=== PATIENT | male | born 1970 | race Caucasian/White ===

== ENCOUNTER 2021-12-09 10:23 | Outpatient (REF) | payer MEDICARE, MEDICAID, SELFPAY ==
--- NOTE | ~2021-12-09 | XR_ITS ---
EXAMINATION: XR CHEST CLINICAL INFORMATION: Cough, unspecified. COMPARISON: Chest radiographs 07/22/2011. TECHNIQUE: 2 views of the chest were obtained. FINDINGS: No airspace consolidation or ground-glass opacity or effusion. Heart size normal. Vascularity normal. The hilar and mediastinal contours and visualized bony structures are unremarkable. XR/XR chest 2V IMPRESSION: Unremarkable examination.
[2021-12-09 10:57] LABS: MANUAL DIFF FLAG NO
[2021-12-09 11:10] LABS: Hematocrit 38.9 % (42.0-52.0); Hemoglobin 13.8 g/dl (14.0-18.0); Imm Gran Abs Auto 0.03 X10*3/uL (0.00-0.03); Imm Gran Pct Auto 0.6 % (0.0-0.4); Lymphocytes Absolute Auto 1.6 X10*3/uL (1.2-4.9); Lymphocytes Percent Auto 32.9 % (20-40); Mean Corpuscular HGB Conc 35.5 g/dl (31.0-36.0); Mean Corpuscular Hemoglobin 29.8 pg (27.0-33.0); Mean Platelet Volume 8.8 fL (9.4-12.4); Monocytes Absolute Auto 0.4 X10*3/uL (0.1-1.2); Monocytes Percent Auto 8.7 % (2-11); Neutrophils Absolute Auto 2.7 x10*3/uL (2.0-8.3); Neutrophils Percent Auto 57.8 % (45-73); Platelet Count 163 X10*3/uL (160-400); Red Blood Count 4.63 X10*6/uL (4.60-5.80); Red Cell Distribution Width 12.1 % (11.0-16.0); White Blood Count 4.7 X10*3/uL (4.8-10.8)
[2021-12-09 14:17] LABS: Thyroid Stimulating Hormone 0.98 uIU/mL (0.32-4.0)
[2021-12-09 14:23] LABS: Alanine Aminotransferase 59 U/L (0-40); Albumin Level 4.8 g/dL (3.5-5.0); Alkaline Phosphatase 75 U/L (39-117); Anion Gap 15 (12-20); Aspartate Amino Transferase 24 U/L (5-37); Bilirubin Total 0.8 mg/dL (0.0-1.0); Blood Urea Nitrogen 18 mg/dL (9-16); Calcium 9.2 mg/dL (8.4-10.2); Carbon Dioxide 24 mmol/L (22-29); Chloride 108 mmol/L (96-108); Cholesterol 245 mg/dL; Estimated Glomerular Filt Rate > 60; Glucose Fasting 121 mg/dL (60-99); HDL Cholesterol 42 mg/dL; LDL Cholesterol Calculated 186 mg/dl; Potassium 4.2 mmol/L (3.3-5.1); Sodium 143 mmol/L (135-145); Total Protein 7.5 g/dL (6.5-8.0); Triglycerides 86 mg/dL
== END 2021-12-09 10:24 | disposition home or self-care (01) ==
LOC: HO.XRAY 10:23
PROVIDERS: PCP Internal Medicine; Visit Provider Internal Medicine
DX: Z13.0 Encounter for screening for diseases of the blood and blood-forming organs and certain disorders involving the immune mechanism (principal); R05.9 Cough, unspecified; E03.9 Hypothyroidism, unspecified; E78.5 Hyperlipidemia, unspecified; I10 Essential (primary) hypertension
CPT/HCPCS: 36415; 71046; 80053; 80061; 84443; 85025

== ENCOUNTER 2022-03-12 09:35 | Emergency (ER) | payer MEDICARE, MEDICAID, SELFPAY ==
--- NOTE | ~2022-03-12 | CT_ITS ---
EXAMINATION: NONCONTRAST HEAD CT NONCONTRAST MAXILLOFACIAL CT INDICATION INFORMATION: Trauma COMPARISON: None. TECHNIQUE: Separate noncontrast CT examinations of the head and maxillofacial bones were performed. Coronal and sagittal images were created for each examination at the technologist workstation. This CT examination was performed using dose optimization techniques as appropriate, variously including the following: *Automated exposure control *Adjustment of mA and/or kV according to patient size (this includes techniques or standardized protocols for targeted exams where dose is matched to indication/reason for exam; i.e. extremities or head) *Use of iterative reconstruction technique DLP: 1473 mGy-cm FINDINGS: Head: There is no evidence of acute intracranial hemorrhage or territorial infarction. No abnormal mass effect or midline shift is seen. Ceron to white matter differentiation is well preserved. No extra-axial fluid collections are identified. No hydrocephalus. No significant volume loss. There is no abnormal attenuation within the brain parenchyma. Focal solid tissue swelling and subgaleal hematoma along the frontal calvarium anteriorly.. No calvarial fracture. The mastoid air cells are well aerated. Maxillofacial: No acute maxillofacial fractures are seen. The frontal, maxillary, ethmoid, and sphenoid sinuses are well aerated, apart from minimal mucosal thickening along the alveolar recess of the right maxillary atelectasis. The uncinate process is normal bilaterally. The infundibula and middle meati are patent. The nasal septum is midline. Prominent leftward projecting osseous nasal septal spur. There is mild anterior translation of the bilateral mandibular heads with respect to the mandibular fossae, slightly greater than expected for the degree of opening of the mouth. The orbits demonstrate a normal appearance bilaterally. The globes are intact, and there are no suspicious findings to suggest retrobulbar hemorrhage. CT/CT facial bones wo IV con IMPRESSION: * No acute intracranial pathology. * No acute maxillofacial bone fracture. * Mild anterior translation of the mandibular condyles with respect to the mandibular fossae. This may be physiologic, however is greater than expected for the position of the jaw. Correlate with any TMJ symptomatology.
[2022-03-12 09:38] VITALS: BP 148/85; PULSE 102; RESP 20; TEMP 36.8; O2SAT 98; BMI 31.4
--- NOTE | 2022-03-12 10:19 | ED_ITS ---
HPI - General Adult General Chief complaint: Skin/Abscess/Foreign Body Stated complaint: forehead swelling, no injury Time Seen by Provider: 03/12/22 10:19 Source: patient Mode of arrival: ambulatory Limitations: no limitations History of Present Illness HPI narrative: Patient is a 51 year old assigned male at with a history of HLD and bipolar presenting to the emergency department today with forehead swelling. Patient states that he has always had a cyst on his hairline and 2 days ago, he hit his head where that cyst is. Patient states that over the last 2 days, he has swelling in his forehead. Patient states that he was seen at an urgent care where they gave him antibiotics. Patient denies any dizziness, lightheadedness, abdominal pain, nausea, vomiting, fever, chills, blurry vision, double vision, loss of vision, chest pain, difficulty breathing, shortness of breath, back pain, night sweats, pain with urination, increased urinary frequency, increased urinary urgency, blood in his urine or stool, syncope or a near syncopal episode, recent trauma or falls, bowel incontinence, bladder incontinence, bowel retention, bladder retention, or any other complaints at this time. Onset (ago): day(s) (2) Location: head and face Radiation: non-radiation Severity: mild Severity scale (1-10): 3 Pain Consistency: constant Relieving factors: none Exacerbating factors: none Associated symptoms: denies other symptoms Treatments prior to arrival: none Related Data Home Medications Medication Instructions Recorded Confirmed clonazepam 0.5 mg tablet 0 mg PO 07/10/20 12/16/21 clozapine 100 mg tablet 0 mg PO 07/10/20 12/16/21 Previous Rx's Medication Instructions Recorded epinephrine 0.15 mg/0.3 mL 0.15 mg (0.3 mL) IM Q30M PRN 11/11/20 injection,auto-injector (EpiPen Jr anaphylaxis #2 ea 2-Pal) epinephrine 0.3 mg/0.3 mL 0.3 mg (0.3 mL) IM Q4H PRN 11/13/21 injection, auto-injector (EpiPen anaphylaxis #2 ea 2-Pal) selenium sulfide 2.5 % lotion 1 appl topical DAILY 7 days #120 mL 11/13/21 nirmatrelvir 300 mg (150 mg See Rx Instructions PO .COMPLEX 01/27/22 x2)-ritonavir 100 mg tablet,dose #30 tabs pack(EUA) (Paxlovid) sulfamethoxazole 800 1 tab PO BID 5 days #10 tabs 03/11/22 mg-trimethoprim 160 mg tablet (Bactrim DS) Allergies Allergy/AdvReac Type Severity Reaction Status Date / Time bees Allergy Intermediate Hives Uncoded 11/13/21 10:53 Review of Systems Constitutional: Constitutional: Reports no additional constitutional complaints, Denies chills, Denies fever(s) and Denies night sweats Eyes: Eyes: Reports no additional eye complaints, Denies blurry vision, Denies change in vision, Denies diplopia, Denies eye discharge, Denies loss of vision and Denies eye pain ENT: Denies dizziness Cardiovascular: Cardiovascular: Reports no additional cardiovascular complaints, Denies chest pain, Denies lightheadedness, Denies Loss of Consciousness and Denies dyspnea Respiratory: Respiratory: Reports no additional respiratory complaints and Denies dyspnea Gastrointestinal: Gastrointestinal: Reports no additional gastrointestinal complaints, Denies abdominal pain, Denies melena, Denies hematochezia, Denies change in bowel habits and Denies change in stool character Genitourinary: Genitourinary: Reports no additional male genitourinary complaints, Denies hematuria, Denies oliguria, Denies difficulty urinating, Denies dysuria, Denies urinary frequency, Denies urinary hesitancy, Denies urinary incontinence and Denies urinary urgency Musculoskeletal: Musculoskeletal: Reports no additional musculoskeletal complaints, Denies numbness and Denies tingling Comments: forehead swelling Neurologic: Denies dizziness, Denies loss of vision, Denies numbness and Denies tingling Psychiatric: Psychiatric: Reports no additional psychiatric complaints Endocrine: Endocrine: Reports no additional endocrine complaints Hematologic/Lymphatic: Hematologic/Lymphatic: Reports no additional hematologic/lymphatic complaints Allergic/Immunologic: Allergic/Immunologic: Reports no additional allergic/immunologic complaints [facility] Past Medical History Attestation statement: The following information was validated with the patient. Source: old records reviewed Medical History Bee sting allergy Bipolar disorder Surgical History History of appendectomy Family History Family History Mother Stroke Father No problems noted. Social History Social History Housing: House Alcohol intake: never Patient Tobacco Use Status: Current someday Tobacco user Tobacco use type: Cigar Smoked in Last 30 Days: No e-Cigarette/Vaping Use: Never Used Second Hand Smoke Exposure: No Advance Directives: No Advance Directives Information Provided: Yes service: No Current occupational status: unemployed Cognitive needs: No Hearing needs: No Vision needs: No Physical Exam ED Vital Signs: Vital Signs - 24 hr 03/12/22 09:38 03/12/22 11:38 Temperature 98.2 F Pulse Rate 102 H 89 Respiratory Rate 20 16 Blood Pressure 148/85 H 139/85 Pulse Oximetry 98 97 Oxygen Delivery Method Room Air Room Air BMI result Body Mass Index 31.4 Const General: cooperative, no acute distress, alert and awake Nutritional Appearance: well nourished Orientation/consciousness: patient oriented x3 Limitations: no limitations HENMT Other: minimal swelling to the forehead, no warmth, no erythema Ears: hearing grossly normal bilaterally and external ears normal General nose exam: Normal external nose present, no nasal discharge noted and no epistaxis Face and sinus: Yes normal facial exam, No abrasion and No laceration Mouth: Normal oral and palatal mucosa present, no drooling and no muffled voice Eyes General: appearance normal, both eyes and all related structures Periorbital: periorbital findings normal Eyelids: Yes eyelids normal Conjunctivae: conjunctivae normal Pupils: Equal, round and reactive pupils present EOM: EOMs intact bilaterally Neck Neck: Yes normal visual inspection, Yes full ROM and Yes no lymphadenopathy Chest Chest palpation & inspection: normal inspection of the chest Resp Effort & Inspection: normal respiratory effort and able to speak in complete sentences GI Inspection: Yes normal to inspection Neuro General: patient oriented x3 and moves all extremities Cranial nerves: Yes Equal, round and reactive pupils present Cognition (Neuro): normal cognition Motor exam (neuro): 5/5 motor strength present throughout Sensory Exam: Normal double simultaneous stimulation for sensation Coordination: [id number] test normal Extrem General: Yes normal to inspection, Yes full ROM and Yes capillary refill normal Psych Appearance: grossly normal Mental Status: mental status grossly normal Affect: normal affect Attitude: cooperative Thought process: Normal thought process present Thought content: Normal thought content present Insight: Good insight present (Psych) Medical Decision Making MDM Narrative Medical decision making narrative: Patient is a 51 year old assigned male at with a history of HLD and bipolar disorder presenting to the emergency department today with forehead swelling. Patient's physical exam showed minimal swelling to the forehead with no erythema or warmth. Patient's head and facial CT showed no acute process. I explained my physical exam findings as well as all test results to the patient. I answered all questions asked by the patient. I stressed the importance of the patient taking his medication as prescribed. I stressed the importance of the patient following up with his primary care provider and a general surgeon. I stressed the importance of the patient returning to the emergency department immediately if his symptoms were to worsen or if he were to develop any dizziness, shortness of breath, difficulty breathing, chest pain, blurry vision, loss of vision, nausea, vomiting, abdominal pain, fever, chills, back pain, or any other complaints. Patient verbalized agreement and understanding with this treatment plan and discharge. Medical Records Medical records reviewed: Yes I reviewed the patient's medical records. Imaging Data CT scan head and facial bones: Attestation: I personally reviewed and interpreted this imaging study as follows: My impression: No acute process. Radiologist's impression: EXAMINATION: NONCONTRAST HEAD CT NONCONTRAST MAXILLOFACIAL CT INDICATION INFORMATION: Trauma COMPARISON: None. TECHNIQUE: Separate noncontrast CT examinations of the head and maxillofacial bones were performed. Coronal and sagittal images were created for each examination at the technologist workstation. This CT examination was performed using dose optimization techniques as appropriate, variously including the following: *Automated exposure control *Adjustment of mA and/or kV according to patient size (this includes techniques or standardized protocols for targeted exams where dose is matched to indication/reason for exam; i.e. extremities or head) *Use of iterative reconstruction technique DLP: 1473 mGy-cm FINDINGS: Head: There is no evidence of acute intracranial hemorrhage or territorial infarction. No abnormal mass effect or midline shift is seen. Ceron to white matter differentiation is well preserved. No extra-axial fluid collections are identified. No hydrocephalus. No significant volume loss. There is no abnormal attenuation within the brain parenchyma. Focal solid tissue swelling and subgaleal hematoma along the frontal calvarium anteriorly.. No calvarial fracture. The mastoid air cells are well aerated. Maxillofacial: No acute maxillofacial fractures are seen. The frontal, maxillary, ethmoid, and sphenoid sinuses are well aerated, apart from minimal mucosal thickening along the alveolar recess of the right maxillary atelectasis. The uncinate process is normal bilaterally. The infundibula and middle meati are patent. The nasal septum is midline. Prominent leftward projecting osseous nasal septal spur. There is mild anterior translation of the bilateral mandibular heads with respect to the mandibular fossae, slightly greater than expected for the degree of opening of the mouth. The orbits demonstrate a normal appearance bilaterally. The globes are intact, and there are no suspicious findings to suggest retrobulbar hemorrhage. CT/CT head/brain wo IV con IMPRESSION: *? No acute intracranial pathology. *? No acute maxillofacial bone fracture. *? Mild anterior translation of the mandibular condyles with respect to the mandibular fossae. This may be physiologic, however is greater than expected for the position of the jaw. Correlate with any TMJ symptomatology. Dictated By: Charanjit Hurd MD Signed By: Electronically signed by Charanjit Hurd MD 03/12/22 1234 Discharge Plan Discharge Clinical Impression: Cyst Patient Disposition: Home, Self-Care Additional Instructions: Follow up with your primary care provider and a general surgeon. Return to the emergency department immediately if your symptoms worsen or if you develop any dizziness, shortness of breath, difficulty breathing, chest pain, blurry vision, loss of vision, nausea, vomiting, abdominal pain, fever, chills, back pain, or any other complaints. Prescriptions: No Action Paxlovid (EUA) 300 mg (150 mg x 2)-100 mg tablets,dose pack See Rx Instructions PO .COMPLEX Qty: 30 0RF Rx Instructions: take TWO 150 mg tablets of nirmatrelvir with ONE 100 mg tablet of ritonavir twice daily for 5 days PO sulfamethoxazole-trimethoprim [Bactrim DS] 800-160 mg tablet 1 tab PO BID 5 Days Qty: 10 0RF clozapine 100 mg tablet 0 mg PO clonazepam 0.5 mg tablet 0 mg PO epinephrine [EpiPen Jr 2-Pal] 0.15 mg/0.3 mL auto-injector 0.15 mg IM Q30M PRN (Reason: anaphylaxis) Qty: 2 4RF Rx Instructions: do not exceed 12 doses per 24 hrs selenium sulfide 2.5 % lotion 1 appl topical DAILY 7 Days Qty: 120 8RF epinephrine [EpiPen 2-Pal] 0.3 mg/0.3 mL auto-injector 0.3 mg IM Q4H PRN (Reason: anaphylaxis) Qty: 2 0RF Referrals: [facility] [place] Surgeons [Provider Group] (Call to establish and follow up with a general surgeon. ) Sy Swanson MD [Primary Care Provider] - Stand Alone Forms: Work/School Release Interventions: ED Discharge Assessment Last Done: 03/12/22 13:25 Discharge Date/Time: 03/12/22 13:26 Print Language: Bengali
[2022-03-12 11:38] VITALS: BP 139/85; PULSE 89; RESP 16; O2SAT 97
--- NOTE | 2022-03-12 13:20 | PC.NURSE ---
patient a/ox4 . went over discharge instructions as ordered by provider . patient to follow up with primary care . patient to return if symptoms worsen . no questions at this time .
== END 2022-03-12 13:26 | disposition home or self-care (01) ==
PROVIDERS: Emergency Provider Emergency Medicine; PCP Internal Medicine
DX: L72.9 Follicular cyst of the skin and subcutaneous tissue, unspecified (principal); R51.9 Headache, unspecified; R22.0 Localized swelling, mass and lump, head; Z79.899 Other long term (current) drug therapy; F17.200 Nicotine dependence, unspecified, uncomplicated; Z71.6 Tobacco abuse counseling
CPT/HCPCS: 70450; 70486; 99284

== ENCOUNTER 2022-03-14 08:26 | Emergency (ER) | payer MEDICARE, MEDICAID, SELFPAY ==
[2022-03-14 09:04] VITALS: BP 129/85; PULSE 105; RESP 18; TEMP 36.9; O2SAT 96; BMI 42.5
[2022-03-14] MEDS: Lidocaine HCl 1 % MPF 5 ML VIAL SUBCUT (11:27)
[2022-03-14] MEDS: Famotidine 20 MG TABLET PO (11:41)
[2022-03-14] MEDS: hydrOXYzine HCL 50 MG TABLET PO (11:41)
[2022-03-14] MEDS: predniSONE 20 MG TABLET 60 MG PO (11:41)
--- NOTE | 2022-03-14 12:23 | ED.GENADULT ---
HPI - General Adult General Chief complaint: General Medical Stated complaint: Eye swelling/possibly from antibiotic? Time Seen by Provider: 03/14/22 10:29 Source: patient and family Mode of arrival: ambulatory Limitations: no limitations History of Present Illness HPI narrative: 51-year-old male presenting to the ER with complaints of swelling to his bilateral eyelids in worsening redness/swelling to his cyst to his forehead. He reports that he was seen here on 03/12/[address] scan of his brain and was told he had a cyst in that he no longer had to take the Bactrim that he was prescribed by his on-call PCP a few days prior to that for possible cellulitis/abscess. He reports that he was told not to take the Bactrim while he was here in the ER although when he spoke to his sister who is a nurse she told him if he has an infection that he should stay on the antibiotic. Therefore he has been taking the Bactrim as prescribed. He reports that the swelling/redness is getting worse to the cyst that he has on his forehead. Now he has swelling to his bilateral eyelids. He reports in the past he has had allergic reactions to bee stings and cats and he has had eye swelling. He has had to use an EpiPen in the past. He denies any fevers, chills, dizziness, headaches, neck pain/stiffness, sore throat, trouble swallowing or breathing, wheezing, cough, shortness of breath, dyspnea on exertion, orthopnea, chest pain, nausea/vomiting, diarrhea, abdominal pain, any other complaints concerns or injuries at this time. He denies any new substances other than the Bactrim that he is on. MD complaint: Worsening cellulitis/abscess and swelling of eyelids Onset (ago): day(s) (Past few days worse today) Related Data Home Medications Medication Instructions Recorded Confirmed clonazepam 0.5 mg tablet 0 mg PO 07/10/20 12/16/21 clozapine 100 mg tablet 0 mg PO 07/10/20 12/16/21 Previous Rx's Medication Instructions Recorded epinephrine 0.15 mg/0.3 mL 0.15 mg (0.3 mL) IM Q30M PRN 11/11/20 injection,auto-injector (EpiPen Jr anaphylaxis #2 ea 2-Pal) epinephrine 0.3 mg/0.3 mL 0.3 mg (0.3 mL) IM Q4H PRN 11/13/21 injection, auto-injector (EpiPen anaphylaxis #2 ea 2-Pal) selenium sulfide 2.5 % lotion 1 appl topical DAILY 7 days #120 mL 11/13/21 nirmatrelvir 300 mg (150 mg See Rx Instructions PO .COMPLEX 01/27/22 x2)-ritonavir 100 mg tablet,dose #30 tabs pack(EUA) (Paxlovid) sulfamethoxazole 800 1 tab PO BID 5 days #10 tabs 03/11/22 mg-trimethoprim 160 mg tablet (Bactrim DS) cephalexin 500 mg capsule 500 mg PO Q6H 7 days #28 caps 03/14/22 diphenhydramine HCl 25 mg tablet 50 mg PO TID PRN allergic reaction 03/14/22 (Benadryl Allergy) #14 tabs doxycycline monohydrate 100 mg 100 mg PO BID 7 days #14 tabs 03/14/22 tablet famotidine 20 mg tablet (Pepcid) 20 mg PO BID rash #14 tabs 03/14/22 prednisone 20 mg tablet 40 mg PO DAILY rash 5 days #10 tabs 03/14/22 Allergies Allergy/AdvReac Type Severity Reaction Status Date / Time bees Allergy Intermediate Hives Uncoded 11/13/21 10:53 Review of Systems Review of Systems: Constitutional : No Fever, No Chills , no body aches, no recent illness Head/Face:+eyelid swelling no additional facial swelling, No facial redness ENT/Mouth : No oral/throat swelling, No Hoarseness, No Swallowing Difficulty Eyes: No Eye Pain, No Swelling, No Redness Cardiovascular : No Chest Pain, No SOB, No palpitations Respiratory : No Cough, No Sputum, No Wheezing, No Smoke Exposure, No Dyspnea Gastrointestinal : No Nausea, No Vomiting, No Diarrhea, No abdominal Pain Genitourinary : No Dysuria, No Urinary Frequency, No Hematuria Musculoskeletal : No joint pain, No Myalgias, No Joint Swelling Skin : + Skin Lesions/abscess, No rash Neuro : No Weakness, No Numbness, No Headache, No dizziness, No tingling Psych : No Anxiety/Panic, No Depression Heme/Lymph: No Bruising, No Lymphadenopathy Endocrine : No Polyuria, No Polydipsia Denies changes in lotions or detergents. Denies drainage from rash. Denies any recent sick contacts or recent travel. + patient is currently on Bactrim this is a new medication for an abscess. Yes all other systems are reviewed and are negative PMFSH Past Medical History Attestation statement: The following information was validated with the patient. Source: old records reviewed, obtained from family and nursing notes reviewed Medical History Bee sting allergy Bipolar disorder Surgical History History of appendectomy Family History Family History Mother Stroke Father No problems noted. Social History Social History Housing: House Alcohol intake: never Patient Tobacco Use Status: Current someday Tobacco user Tobacco use type: Cigar e-Cigarette/Vaping Use: Never Used Second Hand Smoke Exposure: No Advance Directives: No Advance Directives Information Provided: No service: No Current occupational status: unemployed Cognitive needs: No Hearing needs: No Vision needs: No Physical Exam ED Vital Signs: Vital Signs - 24 hr 03/14/22 09:04 Temperature 98.5 F Pulse Rate 105 H Respiratory Rate 18 Blood Pressure 129/85 Pulse Oximetry 96 Oxygen Delivery Method Room Air BMI result Body Mass Index 42.5 vital signs have been reviewed as normal and appeared to be correct. Blood pressure normal. Heart rate 105. Respiration rate normal. Temperature normal. Oxygen saturation normal. Appearance: Alert. Oriented X3. No acute distress. Head: Normal external exam. Normocephalic. Atraumatic. Eyes: PERRLA. EOMI. Conjunctiva and sclera normal. Bilateral eyelid swelling to both eyes. ENT: Pharynx normal. Uvula midline. Moist mucous membranes. No lesions/ulcerations or masses noted on the tongue. Normal voice. No trismus noted. No drooling noted. No muffled voice noted. Neck: Normal inspection. Neck supple. FROM. No adenopathy. Thyroid Normal. No tracheal deviation noted. No crepitus is noted. No meningeal signs. CVS: Normal heart rate and rhythm. Respiratory: No respiratory distress. Painless inspiration. Back: Full range of motion noted. Skin: Skin warm and dry. Normal skin color. Normal skin turgor. Patient with fluctuant abscess to the right forehead/hairline with surrounding erythema/warmth to touch and tender to palpation. No streaking noted. No additional rashes/lesions/lacerations noted. Extremities: Extremities exhibit normal range of motion and nontender. Neuro: Oriented X 3. No motor deficit. No sensory deficit. Reflexes normal. Normal steady gait. No focal neuro deficits noted. CN's II-XII intact bilaterally? Course Course Course Narrative: IMP/Plan: Allergic rxn. Not anaphylaxis. Not sepsis/ infectious etiology. Patient well appearing in no acute distress, breathing easily without throat symptoms. Speaking full sentences, and handling secretions without difficulty. There is no obvious threat to airway. Lungs are CTA in all osborn. No signs of angioedema, stridor, airway compromise, anaphylaxis or anaphylactic shock. Not c/w SSSS/ TEN/ Eryth multiforme/ Frankel Johnsons. Patient was given prednisone, Atarax and Pepcid and his bilateral eyelid swelling did improve while the patient was here. He is now status post I&D of abscess. Patient tolerated procedure well. No complications. Although while myself and the student from [facility] where trying to express the purulent discharge the abscess bursted in the students face and we are unsure if the patient's blood/purulent discharge went into the students I therefore patient denied any history of hepatitis or HIV although he is agreeable to getting his blood taken for the student after the exposure of the blood/purulent discharge from the abscess. We will discharge the patient with antibiotics with doxycycline Keflex. I explained to the patient that he should no longer take Bactrim. Along with instructions to follow-up with PCP/ general surgeon for possible cystic sac removal. Patient understands agrees with this plan. Procedures Abscess I/D Site: scalp Side (if applicable): right Local Anesthetic: lidocaine 1% Amount of anesthesia used (mL): 3 Technique: incised with blade Amount of fluid expressed (mL): 5 Sent for culture/gram staining?: No Irrigation: No Packing used?: none Complications: other (No complications) Medical Decision Making Medical Records Medical records reviewed: Yes I reviewed the patient's medical records. Lab Data Lab results reviewed: Yes I reviewed the patient's lab results. Discharge Plan Discharge Clinical Impression: Abscess of forehead, Cellulitis of forehead, Allergic reaction, Eyelid swelling Patient Disposition: Home, Self-Care Instructions: Cellulitis (ED), General Allergic Reaction (ED), Abscess Incision and Drainage (DC) Prescriptions: New doxycycline monohydrate 100 mg tablet 100 mg PO BID 7 Days Qty: 14 0RF cephalexin 500 mg capsule 500 mg PO Q6H 7 Days Qty: 28 0RF diphenhydramine HCl [Benadryl Allergy] 25 mg tablet 50 mg PO TID PRN (Reason: allergic reaction) Qty: 14 0RF prednisone 20 mg tablet 40 mg PO DAILY 5 Days Qty: 10 0RF famotidine [Pepcid] 20 mg tablet 20 mg PO BID Qty: 14 0RF No Action Paxlovid (EUA) 300 mg (150 mg x 2)-100 mg tablets,dose pack See Rx Instructions PO .COMPLEX Qty: 30 0RF Rx Instructions: take TWO 150 mg tablets of nirmatrelvir with ONE 100 mg tablet of ritonavir twice daily for 5 days PO sulfamethoxazole-trimethoprim [Bactrim DS] 800-160 mg tablet 1 tab PO BID 5 Days Qty: 10 0RF clozapine 100 mg tablet 0 mg PO clonazepam 0.5 mg tablet 0 mg PO epinephrine [EpiPen Jr 2-Pal] 0.15 mg/0.3 mL auto-injector 0.15 mg IM Q30M PRN (Reason: anaphylaxis) Qty: 2 4RF Rx Instructions: do not exceed 12 doses per 24 hrs selenium sulfide 2.5 % lotion 1 appl topical DAILY 7 Days Qty: 120 8RF epinephrine [EpiPen 2-Pal] 0.3 mg/0.3 mL auto-injector 0.3 mg IM Q4H PRN (Reason: anaphylaxis) Qty: 2 0RF Referrals: Sy Swanson MD [Primary Care Provider] - (your pcp) Rubens Schuler MD [Physician] - (Call to make a follow-up appointment within the next few weeks possible cystic sac removed) Print Language: Tristanian
[2022-03-14 14:04] LABS: HIV AB/AG Nonreactive (Nonreactive)
[2022-03-15 05:14] LABS: HIV Num 1 0.07 S/CO (0.00-0.99)
[2022-03-15 06:25] LABS: HBS Num1 1.25 mIU/mL (0-7.99); HBsAGNum1 0.27 S/CO (0.00-0.99); Hepatitis B Core Antibody Nonreactive (Nonreactive); Hepatitis B Surface Antigen Negative (Negative); ~HepC Num1 0.09 S/CO (0.00-0.79); ~Hepatitis B Surface Antibody NONREACTIVE (Nonreactive); ~Hepatitis C Antibody Nonreactive (Nonreactive)
== END 2022-03-14 14:05 | disposition home or self-care (01) ==
PROVIDERS: Physician Assistant Medical; Emergency Provider Emergency Medicine; PCP Internal Medicine
DX: L02.01 Cutaneous abscess of face (principal); L03.211 Cellulitis of face; Z79.899 Other long term (current) drug therapy
CPT/HCPCS: 10060; 36415; 86704; 86706; 86803; 87340; 87389; 99283

== ENCOUNTER → 2022-03-25 10:56 | Outpatient (BNVA) | payer MEDICARE, MEDICAID, SELFPAY | PROVIDERS: PCP Internal Medicine; Visit Provider Surgery | DX: L02.01 Cutaneous abscess of face (principal) | CPT/HCPCS: 10060; 10061; 99202 ==

== ENCOUNTER 2022-11-30 10:22 | Outpatient (AMB) | payer MEDICARE, MEDICAID, SELFPAY ==
--- NOTE | 2022-11-30 10:23 | A.OFFPC_ITS ---
Vital Signs 11/30/22 10:25 Height 5 ft 10 in Weight 226 lb BMI 32.4 BP 132/72 Blood Pressure Location Lt brachial Position Sitting Pulse 106 H Pulse Source Pulse Oximeter Pulse Oximetry (%) 96 Oxygen Delivery Method Room Air Intake Visit Reasons: 3 month f/u Intake Note: Patient is here to follow up on Hyperlipidemia. Lab results. Con[employer] Finishing Supervisor Required: No Food Analyst: Not Required per policy Accompanied by: Self / Same As Patient Allergies sulfamethoxazole [From Sulfamethoxazole-Trimethoprim] Allergy (Intermediate, Verified 11/30/22 10:24) Swelling trimethoprim [From Sulfamethoxazole-Trimethoprim] Allergy (Intermediate, Verified 11/30/22 10:24) Swelling bees Allergy (Intermediate, Uncoded 11/30/22 10:24) Hives Medication List - Last Reconciled 11/30/22 by Sy Swanson MD clonazepam 0 mg PO clozapine 200 mg PO DAILY epinephrine (EpiPen 2-Pal) 0.3 mg (0.3 mL) IM Q4H PRN selenium sulfide 2.5% 1 appl topical DAILY 7 days sildenafil (Viagra) 50 mg PO DAILY PRN Tobacco use date assessed: 11/30/22 Dental Screening Dental Screen Date: 11/30/22 Did you have a dental visit in the last 12 months?: No Did you have a dental problem in the last 6 months where you did not have access to dental care?: No Was dental information given to patient?: No HPI 3 month f/u HPI Details elevated glucosr and chol; motivated to lose weight PFSH Medical History (Updated 08/16/22 @ 09:33 by Sy Swanson MD) Abscess of forehead Bee sting allergy Bipolar disorder Surgical History History of appendectomy History of surgery of head Family History Mother Stroke Father No problems noted. Social History (Updated 11/30/22 @ 10:28 by IRLANDA Bernardo) Housing: House Alcohol intake: never Patient Tobacco Use Status: Current someday Tobacco user Tobacco use type: Cigar e-Cigarette/Vaping Use: Never Used Second Hand Smoke Exposure: Yes service: No Current occupational status: unemployed Cognitive needs: No Hearing needs: No Vision needs: No Questionnaire Thrive Questionnaire Date Thrive assessed: 11/11/20 HERNÁN-7 AMB Questionnaire HERNÁN-7 Date HERNÁN - 7 assessed: 06/01/22 Source: Developed by Drs. Tyler Matos, Hanny Hampton, Alfredo Crawford and colleagues, with an educational nawaf from [employer]. Review of Systems Const Denies chills, Denies headache(s) and Denies weight loss ENT Denies headache(s) Card Denies chest pain, Denies syncope, Denies irregular heart rhythm and Denies dyspnea Resp Denies chest congestion, Denies cough and Denies dyspnea GI Denies abdominal pain, Denies change in stool character, Denies nausea and Denies vomiting Musc Denies deformity and Denies joint swelling Neuro Denies syncope and Denies headache(s) Physical exam (Primary Care) Vital Signs: Last Vital Signs Pulse 106 H 11/30/22 10:25 BP 132/72 11/30/22 10:25 Pulse Ox 96 11/30/22 10:25 Oxygen Delivery Method Room Air 11/30/22 10:25 BMI result Body Mass Index 32.4 Tobacco/Smoking Status: Tobacco use Status Tobacco use date assessed 11/30/22 11/30/22 10:29 Patient Tobacco Use Status Current someday Tobacco 11/30/22 10:29 Tobacco use type Cigar 11/30/22 10:29 e-Cigarette/Vaping Use Never Used 11/30/22 10:29 Thrive Assessment: Date of Thrive Assessment Date Thrive assessed 11/11/20 11/30/22 10:29 Const General: cooperative, healthy appearing and no acute distress HENMT Other: healing laceration behind right ear; not infected Head: Yes laceration Eyes General: appearance normal, both eyes and all related structures Neck Neck: Yes normal visual inspection Assessment and Plan Assessment & Plan (1) Hyperlipidemia: Code(s): E78.5 - Hyperlipidemia, unspecified Plan: recheck in three months Orders: Orders Glucose Fasting Today R73.9 - Hyperglycemia, unspecified Hemoglobin A1c Today R73.9 - Hyperglycemia, unspecified Lipid Panel Today E78.5 - Hyperlipidemia, unspecified Medications: New sildenafil (Viagra) administer 30 minutes to 4 hours before activity 50 mg PO DAILY PRN 30 tabs 3RF sexual activity Coding Level of Care Code Est Pt Level 3 (63592) Diagnoses Hyperlipidemia E78.5
[2022-11-30 10:25] VITALS: BP 132/72; PULSE 106; O2SAT 96; BMI 32.4
== END 2022-11-30 10:44 | disposition home or self-care (01) ==
PROVIDERS: Visit Provider Internal Medicine
DX: E78.5 Hyperlipidemia, unspecified (principal)
CPT/HCPCS: 99213

== ENCOUNTER 2023-03-02 09:53 | Outpatient (AMB) | payer MEDICARE, MEDICAID, SELFPAY ==
[2023-03-02 09:59] VITALS: BP 136/72; PULSE 97; O2SAT 99; BMI 32.1
--- NOTE | 2023-03-02 09:59 | MHC.PC.OV ---
Vital Signs 03/02/23 09:59 Height 5 ft 10 in Weight 224 lb BMI 32.1 BP 136/72 Blood Pressure Location Lt brachial Position Sitting Pulse 97 Pulse Source Pulse Oximeter Pulse Oximetry (%) 99 Oxygen Delivery Method Room Air Intake Visit Reasons: 3mth f/u Allergies sulfamethoxazole [From Sulfamethoxazole-Trimethoprim] Allergy (Intermediate, Verified 03/02/23 09:59) Swelling trimethoprim [From Sulfamethoxazole-Trimethoprim] Allergy (Intermediate, Verified 03/02/23 09:59) Swelling bees Allergy (Intermediate, Uncoded 03/02/23 09:59) Hives Medication List - Last Reconciled 03/02/23 by Sy Swanson MD clonazepam 0 mg PO clozapine 200 mg PO DAILY epinephrine (EpiPen 2-Pal) 0.3 mg (0.3 mL) IM Q4H PRN selenium sulfide 2.5% 1 appl topical DAILY 7 days sildenafil (Viagra) 50 mg PO DAILY PRN Tobacco use date assessed: 11/30/22 Dental Screening Dental Screen Date: 03/02/23 Did you have a dental visit in the last 12 months?: No Did you have a dental problem in the last 6 months where you did not have access to dental care?: No Was dental information given to patient?: Patient has dentist HPI 3mth f/u HPI Details Bipolar disorder; sees psych; doing well on rx PFSH Medical History Abscess of forehead Bee sting allergy Bipolar disorder Surgical History History of surgery of head History of appendectomy Family History Mother Stroke Father No problems noted. Social History Housing: House Alcohol intake: never Patient Tobacco Use Status: Current someday Tobacco user Tobacco use type: Cigar e-Cigarette/Vaping Use: Never Used Second Hand Smoke Exposure: Yes service: No Current occupational status: unemployed Cognitive needs: No Hearing needs: No Vision needs: No Questionnaire PHQ-9 Over the last 2 weeks, how often have you been bothered by any of the following problems? 1. Little interest or pleasure in doing things: not at all 2. Feeling down, depressed, or hopeless: not at all 3. Trouble falling or staying asleep, or sleeping too much: not at all 4. Feeling tired or having little energy: not at all 5. Poor appetite or overeating: not at all 6. Feeling bad about yourself - or that you are a failure or have let yourself or your family down: not at all 7. Trouble concentrating on things, such as reading the newspaper or watching television: not at all 8. Moving or speaking so slowly that other people could have noticed. Or the opposite - being so fidgety or restless that you have been moving around a lot more than usual: not at all 9. Thoughts that you would be better off or of hurting yourself in some way: not at all Total score: 0 Depression Screening Interpretation: Negative Depression Screening Done: Yes 63848 - PHQ-9 Billing: Yes Source: Developed by Drs. Tyler Matos, Hanny Hampton, Alfredo Crawford and colleagues, with an educational nawaf from [employer] Thrive Questionnaire Date Thrive assessed: 03/02/23 I am a: Patient What is your living situation today?: I have a steady place to live Within the past 12 months, did the food you bought not last and you didn't have the money to get more?: Never true Within the past 12 months, did you worry whether your food would run out before you got money to buy more?: Never true Do you have trouble paying for medicines?: No Do you have trouble getting transportation to medical appointments?: No Do you have trouble paying your heating and electricity bill?: No Do you have trouble taking care of your child, family member or friend?: No Do you have trouble with day-to-day activities such as bathing, preparing meals, shopping, managing finances, etc.?: No Are you currently unemployed and looking for a job?: No Are you interested in more education?: No Please select the resources that you would like help with: None AUDIT C Alcohol Use Questionnaire (AUDIT-C) 1. How often do you have a drink containing alcohol?: Never Total Score: 0 Score Reviewed/Action Taken: Yes HERNÁN-7 AMB Questionnaire HERNÁN-7 Date HERNÁN - 7 assessed: 06/01/22 Source: Developed by Drs. Tylre Matos, Hanny Hampton, Alfredo Crawford and colleagues, with an educational nawaf from [employer]. Review of Systems Const Denies chills, Denies headache(s) and Denies weight loss ENT Denies headache(s) Card Denies chest pain, Denies syncope, Denies irregular heart rhythm and Denies dyspnea Resp Denies chest congestion, Denies cough and Denies dyspnea GI Denies abdominal pain, Denies change in stool character, Denies nausea and Denies vomiting Musc Denies deformity and Denies joint swelling Neuro Denies syncope and Denies headache(s) Physical exam (Primary Care) Vital Signs: Last Vital Signs Pulse 97 03/02/23 09:59 BP 136/72 03/02/23 09:59 Pulse Ox 99 03/02/23 09:59 Oxygen Delivery Method Room Air 03/02/23 09:59 BMI result Body Mass Index 32.1 Tobacco/Smoking Status: Tobacco use Status Tobacco use date assessed 11/30/22 03/02/23 10:00 Patient Tobacco Use Status Current someday Tobacco 03/02/23 10:00 Tobacco use type Cigar 03/02/23 10:00 e-Cigarette/Vaping Use Never Used 03/02/23 10:00 PHQ-9: PHQ-9 Score PHQ-9: Total score 0 03/02/23 10:00 Depression Screening Interpretation: Negative Thrive Assessment: Date of Thrive Assessment Date Thrive assessed 03/02/23 03/02/23 10:00 Const General: cooperative, comfortable, no acute distress and alert Neck Neck: Yes no lymphadenopathy Thyroid: Thyroid normal Resp Effort & Inspection: normal respiratory effort Auscultation: clear to auscultation bilaterally Percussion: percussion normal Cardio Jugular venous distension: no JVD Palpation: normal PMI Rate: regular rate Rhythm: regular rhythm Heart sounds: S1 normal heart sound present and S2 normal heart sound present GI Inspection: Yes normal to inspection Palpation (GI): No hepatosplenomegaly present Skin General skin exam: no rashes or lesions noted Extrem General: Yes no clubbing, cyanosis or edema Assessment and Plan Assessment & Plan (1) Bipolar disorder: Code(s): F31.9 - Bipolar disorder, unspecified Plan: as per psych Coding Level of Care Code Est Pt Level 3 (04158) Diagnoses Bipolar disorder F31.9
== END 2023-03-02 11:35 | disposition home or self-care (01) ==
PROVIDERS: PCP Internal Medicine; Visit Provider Internal Medicine
DX: F31.9 Bipolar disorder, unspecified (principal)
CPT/HCPCS: 99213

== ENCOUNTER 2024-04-17 10:51 | Outpatient (AMB) | payer OTHER, SELFPAY ==
--- NOTE | 2024-04-17 10:52 | A.OFFPC_ITS ---
Vital Signs 04/17/24 10:53 Height 5 ft 10 in Weight 233 lb BMI 33.4 BP 144/82 H Blood Pressure Location Lt brachial Position Sitting Pulse 115 H Pulse Source Pulse Oximeter Pulse Oximetry (%) 96 Oxygen Delivery Method Room Air Intake Visit Reasons: Annual PE/ BP f/u General Practice Required: No Accompanied by: Self / Same As Patient Allergies sulfamethoxazole [From Sulfamethoxazole-Trimethoprim] Allergy (Intermediate, Verified 04/17/24 10:54) Swelling trimethoprim [From Sulfamethoxazole-Trimethoprim] Allergy (Intermediate, Verified 04/17/24 10:54) Swelling bees Allergy (Intermediate, Uncoded 04/17/24 10:54) Hives Medication List - Last Reconciled 04/18/24 by Sy Swanson MD clonazepam 0 mg PO clozapine 200 mg PO DAILY epinephrine (EpiPen 2-Pal) 0.3 mg (0.3 mL) IM Q4H PRN selenium sulfide 2.5% 1 appl topical DAILY 7 days sildenafil (Viagra) 50 mg PO DAILY PRN Tobacco use date assessed: 04/17/24 Dental Screening Dental Screen Date: 04/17/24 Did you have a dental visit in the last 12 months?: Yes Did you have a dental problem in the last 6 months where you did not have access to dental care?: No Was dental information given to patient?: Patient has dentist HPI Annual PE/ BP f/u HPI Details Bipolar disorder; sees psych PFSH Medical History Abscess of forehead Bee sting allergy Bipolar disorder Surgical History History of surgery of head History of appendectomy Family History Mother Stroke Father No problems noted. Social History Housing: House Alcohol intake: never Patient Tobacco Use Status: Current someday Tobacco user Tobacco use type: Cigar e-Cigarette/Vaping Use: Never Used Second Hand Smoke Exposure: Yes service: No Current occupational status: unemployed Cognitive needs: No Hearing needs: No Vision needs: No Questionnaire PHQ-9 Over the last 2 weeks, how often have you been bothered by any of the following problems? 1. Little interest or pleasure in doing things: not at all 2. Feeling down, depressed, or hopeless: not at all 3. Trouble falling or staying asleep, or sleeping too much: not at all 4. Feeling tired or having little energy: not at all 5. Poor appetite or overeating: not at all 6. Feeling bad about yourself - or that you are a failure or have let yourself or your family down: not at all 7. Trouble concentrating on things, such as reading the newspaper or watching television: not at all 8. Moving or speaking so slowly that other people could have noticed. Or the opposite - being so fidgety or restless that you have been moving around a lot more than usual: not at all 9. Thoughts that you would be better off or of hurting yourself in some way: not at all Total score: 0 Source: Developed by Drs. Tyler Matos, Hanny Hampton, Alfredo Crawford and colleagues, with an educational nawaf from [employer]. Thrive Questionnaire Date Thrive assessed: 04/17/24 I am a: Patient What is your living situation today?: I have a steady place to live Within the past 12 months, did the food you bought not last and you didn't have the money to get more?: Never true Within the past 12 months, did you worry whether your food would run out before you got money to buy more?: Never true Do you have trouble paying for medicines?: No Do you have trouble getting transportation to medical appointments?: No Do you have trouble paying your heating and electricity bill?: No Do you have trouble taking care of your child, family member or friend?: No Do you have trouble with day-to-day activities such as bathing, preparing meals, shopping, managing finances, etc.?: No Are you currently unemployed and looking for a job?: I choose not to answer this question Are you interested in more education?: No Please select the resources that you would like help with: None Currently or been in a relationship where the following occur: No concerns reported THRIVE Score: 0 AUDIT C Alcohol Use Questionnaire (AUDIT-C) 1. How often do you have a drink containing alcohol?: Never Total Score: 0 HERNÁN-7 AMB Questionnaire HERNÁN-7 Date HERNÁN - 7 assessed: 04/17/24 Feeling nervous, anxious, or on edge: 0 = Not at all Not being able to stop or control worryin = Not at all Worrying too much about different things: 0 = Not at all Trouble relaxin = Not at all Being so restless that it is hard to sit still: 0 = Not at all Becoming easily annoyed or irritable: 0 = Not at all Feeling afraid as if something awful might happen: 0 = Not at all Total HERNÁN-7 score (0-4 normal; 5-9 mild; 10-14 moderate; 15-21 severe): 0 Source: Developed by Drs. Tyler Matos, Hanny Hampton, Alfredo Crawford and colleagues, with an educational nawaf from [employer]. Review of Systems Const Denies chills, Denies fatigue, Denies headache(s) and Denies weight loss Eyes Denies change in vision, Denies diplopia and Denies eye pain ENT Denies vertigo, Denies dizziness, Denies headache(s) and Denies nasal discharge Card Denies chest pain, Denies rapid heart rate and Denies dyspnea on exertion Resp Denies chest congestion, Denies cough, Denies pain with cough and Denies dyspnea on exertion GI Denies abdominal pain, Denies hematochezia and Denies change in bowel habits Musc Denies myalgias, Denies arthralgias and Denies joint swelling Skin/Breast Denies lesions and Denies unusual bruising Neuro Denies vertigo, Denies dizziness, Denies headache(s) and Denies focal weakness Endo Denies fatigue Physical exam (Primary Care) Vital Signs: Last Vital Signs Pulse 115 H 04/17/24 10:53 BP 144/82 H 04/17/24 10:53 Pulse Ox 96 04/17/24 10:53 Oxygen Delivery Method Room Air 04/17/24 10:53 BMI result Body Mass Index 33.4 Tobacco/Smoking Status: Tobacco use Status Tobacco use date assessed 04/17/24 04/17/24 10:59 Patient Tobacco Use Status Current someday Tobacco 04/17/24 10:59 Tobacco use type Cigar 04/17/24 10:59 e-Cigarette/Vaping Use Never Used 04/17/24 10:59 PHQ-9: PHQ-9 Score PHQ-9: Total score 0 04/17/24 10:59 Thrive Assessment: Date of Thrive Assessment Date Thrive assessed 04/17/24 04/17/24 10:59 Currently or been in a relationship where the following occur: No concerns reported Const General: cooperative, healthy appearing and no acute distress Orientation/consciousness: oriented to person, oriented to place and oriented to time HENMT Head: Yes normal to inspection, Yes normocephalic and Yes atraumatic Mouth: Normal oral and palatal mucosa present and tongue normal Throat: Yes posterior oropharynx normal and Yes uvula midline Eyes General: appearance normal, both eyes and all related structures Neck Neck: Yes normal visual inspection, Yes full ROM and Yes no lymphadenopathy Thyroid: Thyroid normal Carotids: normal carotid upstroke Chest Chest palpation & inspection: normal inspection of the chest Resp Effort & Inspection: normal respiratory effort and able to speak in complete sentences Auscultation: clear to auscultation bilaterally Cardio Jugular venous distension: no JVD Palpation: normal PMI Rate: regular rate Rhythm: regular rhythm Heart sounds: S1 normal heart sound present and S2 normal heart sound present GI Inspection: Yes normal to inspection Palpation (GI): Soft to palpation and No hepatosplenomegaly present Auscultation: normal bowel sounds General: Yes no CVA tenderness Back/Spine/Pelvis Back: no CVA tenderness Skin General skin exam: no rashes or lesions noted Neuro General: oriented to person, oriented to place and oriented to time Extrem General: Yes normal to inspection and Yes full ROM Coding Level of Care Code Est Pt Prev Care 40-64y(04822) Diagnoses Physical exam Z00.00 Bipolar disorder F31.9 Assessment & Plan Assessment & Plan (1) Physical exam: Code(s): Z00.00 - Encounter for general adult medical examination without abnormal findings Category: Medical Plan: stable; do labs (2) Bipolar disorder: Code(s): F31.9 - Bipolar disorder, unspecified Category: Medical Plan: stable; per psych Orders: Orders XR shoulder RT min 2V 04/17/24 M25.519 - Pain in unspecified shoulder
[2024-04-17 10:53] VITALS: BP 144/82; PULSE 115; O2SAT 96; BMI 33.4
== END 2024-04-17 11:17 | disposition home or self-care (01) ==
PROVIDERS: PCP Internal Medicine; Visit Provider Internal Medicine
DX: Z00.00 Encounter for general adult medical examination without abnormal findings (principal); F31.9 Bipolar disorder, unspecified

== ENCOUNTER 2024-04-17 10:51 | Outpatient (REF) | payer OTHER, SELFPAY ==
--- NOTE | ~2024-04-17 | XR_ITS ---
EXAMINATION: XR SHOULDER, RIGHT CLINICAL INFORMATION: M25.519 - Pain in unspecified shoulder COMPARISON: None available. TECHNIQUE: AP external rotation, Grashey, scapular Y, and axillary views of the right shoulder. FINDINGS: No acute fracture. Glenohumeral alignment is anatomic with normal joint space. Moderate acromioclavicular arthritis. There is apparent undersurface spurring of the distal clavicle. No suspicious findings in the size lung. XR/XR shoulder RT min 2V IMPRESSION: Moderate acromioclavicular arthritis. Distal clavicular undersurface spurring. Electronically signed by: Bart Jack MD 04/17/2024 04:07 PM FERNANDO HANKS
== END 2024-04-17 10:52 | disposition home or self-care (01) ==
LOC: HO.XRAY 10:51
PROVIDERS: PCP Internal Medicine; Visit Provider Internal Medicine
DX: Z00.00 Encounter for general adult medical examination without abnormal findings (principal); F31.9 Bipolar disorder, unspecified; M25.511 Pain in right shoulder
CPT/HCPCS: 73030; 96127; 99396

== ENCOUNTER 2024-07-17 10:27 | Outpatient (AMB) | payer OTHER, SELFPAY ==
--- NOTE | 2024-07-17 10:33 | MHC.PC.OV ---
Vital Signs 07/17/24 10:35 Height 5 ft 10 in Weight 229 lb BMI 32.9 BP 118/68 Blood Pressure Location Lt brachial Position Sitting Pulse 105 H Pulse Source Pulse Oximeter Temp 97.5 F Temp Source Temporal Artery Scan Pulse Oximetry (%) 97 Oxygen Delivery Method Room Air Intake Visit Reasons: 3mth f/u Intake Note: Patient is here to follow up on HLD. 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 per policy Accompanied by: Self / Same As Patient Allergies sulfamethoxazole [From Sulfamethoxazole-Trimethoprim] Allergy (Intermediate, Verified 07/17/24 10:34) Swelling trimethoprim [From Sulfamethoxazole-Trimethoprim] Allergy (Intermediate, Verified 07/17/24 10:34) Swelling bees Allergy (Intermediate, Uncoded 07/17/24 10:34) Hives Medication List - Last Reconciled 07/17/24 by Sy Swanson MD clonazepam 0.5 mg PO DAILY clozapine 200 mg PO DAILY epinephrine (EpiPen 2-Pal) 0.3 mg (0.3 mL) IM Q4H PRN selenium sulfide 2.5% 1 appl topical DAILY 7 days sildenafil (Viagra) 50 mg PO DAILY PRN Tobacco use date assessed: 07/17/24 Dental Screening Dental Screen Date: 07/17/24 Did you have a dental visit in the last 12 months?: No Did you have a dental problem in the last 6 months where you did not have access to dental care?: No Was dental information given to patient?: No HPI 3mth f/u HPI Details sees psych for bipolar disorder; doing well and compliant [facility] Medical History Abscess of forehead Bee sting allergy Bipolar disorder Surgical History History of surgery of head History of appendectomy Family History Mother Stroke Father No problems noted. Social History (Updated 07/17/24 @ 10:38 by IRLANDA Bernardo) Housing: House Alcohol intake: never Patient Tobacco Use Status: Former Tobacco user Tobacco use type: Cigar e-Cigarette/Vaping Use: Never Used Second Hand Smoke Exposure: Yes service: No Current occupational status: unemployed Cognitive needs: No Hearing needs: No Vision needs: No Questionnaire PHQ-9 Over the last 2 weeks, how often have you been bothered by any of the following problems? 1. Little interest or pleasure in doing things: not at all 2. Feeling down, depressed, or hopeless: not at all 3. Trouble falling or staying asleep, or sleeping too much: not at all 4. Feeling tired or having little energy: not at all 5. Poor appetite or overeating: not at all 6. Feeling bad about yourself - or that you are a failure or have let yourself or your family down: not at all 7. Trouble concentrating on things, such as reading the newspaper or watching television: not at all 8. Moving or speaking so slowly that other people could have noticed. Or the opposite - being so fidgety or restless that you have been moving around a lot more than usual: not at all 9. Thoughts that you would be better off or of hurting yourself in some way: not at all Total score: 0 Depression Screening Interpretation: Negative Depression Screening Done: Yes Source: Developed by Drs. Tyler Matos, Hanny Hampton, Alfredo Crawford and colleagues, with an educational nawaf from [employer]. Thrive Questionnaire Date Thrive assessed: 07/17/24 AUDIT C Alcohol Use Questionnaire (AUDIT-C) 1. How often do you have a drink containing alcohol?: Never Total Score: 0 HERNÁN-7 AMB Questionnaire HERNÁN-7 Date HERNÁN - 7 assessed: 07/17/24 Feeling nervous, anxious, or on edge: 0 = Not at all Not being able to stop or control worryin = Not at all Worrying too much about different things: 0 = Not at all Trouble relaxin = Not at all Being so restless that it is hard to sit still: 0 = Not at all Becoming easily annoyed or irritable: 0 = Not at all Feeling afraid as if something awful might happen: 0 = Not at all Total HERNÁN-7 score (0-4 normal; 5-9 mild; 10-14 moderate; 15-21 severe): 0 Source: Developed by Drs. yTler Matos, Hanny Hampton, Alfredo Crawford and colleagues, with an educational nawaf from [employer]. Review of Systems Const Denies chills, Denies headache(s) and Denies weight loss ENT Denies headache(s) Card Denies chest pain, Denies syncope, Denies irregular heart rhythm and Denies dyspnea Resp Denies chest congestion, Denies cough and Denies dyspnea GI Denies abdominal pain, Denies change in stool character, Denies nausea and Denies vomiting Musc Denies deformity and Denies joint swelling Neuro Denies syncope and Denies headache(s) Physical exam (Primary Care) Vital Signs: Last Vital Signs Temp 97.5 F 07/17/24 10:35 Pulse 105 H 07/17/24 10:35 BP 118/68 07/17/24 10:35 Pulse Ox 97 07/17/24 10:35 Oxygen Delivery Method Room Air 07/17/24 10:35 BMI result Body Mass Index 32.9 Tobacco/Smoking Status: Tobacco use Status Tobacco use date assessed 07/17/24 07/17/24 10:39 Patient Tobacco Use Status Former Tobacco user 07/17/24 10:39 Tobacco use type Cigar 07/17/24 10:39 e-Cigarette/Vaping Use Never Used 07/17/24 10:39 PHQ-9: PHQ-9 Score PHQ-9: Total score 0 07/17/24 10:39 Depression Screening Interpretation: Negative Thrive Assessment: Date of Thrive Assessment Date Thrive assessed 07/17/24 07/17/24 10:39 Const General: cooperative, comfortable, no acute distress and alert Neck Neck: Yes no lymphadenopathy Thyroid: Thyroid normal Resp Effort & Inspection: normal respiratory effort Auscultation: clear to auscultation bilaterally Percussion: percussion normal Cardio Jugular venous distension: no JVD Palpation: normal PMI Rate: regular rate Rhythm: regular rhythm Heart sounds: S1 normal heart sound present and S2 normal heart sound present GI Inspection: Yes normal to inspection Palpation (GI): No hepatosplenomegaly present Skin General skin exam: no rashes or lesions noted Extrem General: Yes no clubbing, cyanosis or edema Coding Level of Care Code Est Pt Level 3 (81302) Diagnoses Bipolar disorder F31.9 Assessment & Plan Assessment & Plan (1) Bipolar disorder: Code(s): F31.9 - Bipolar disorder, unspecified Category: Medical Plan: f/u with psych
[2024-07-17 10:35] VITALS: BP 118/68; PULSE 105; TEMP 36.4; O2SAT 97; BMI 32.9
--- OUTSIDE RECORDS SUMMARY | 2024-07-17 12:31 | XMS_ITS | Clinical Summary ---
Author Organization [facility] Address [address] [place] [address] Phone Care Team Providers Care Dog Hair Clipper Name Role Phone Lora Porter NP Primary Care Provider [phone] Social History Tobacco Use Types Packs/Day Years Used Date Smoking Tobacco: Never Assessed Sex and Gender Information Value Date Recorded Sex Assigned at Not on file Legal Sex Male 3:19 PM EST Gender Identity Not on file Sexual Orientation Not on file Plan of Treatment Health Maintenance Due Date Last Done Comments Hepatitis B Vaccines (1 of 3 - 19+ 3-dose series) 11/21/1990 Pneumococcal Vaccine: 50+ Years (1 of 1 - PCV) 11/21/2021 Zoster Vaccines (1 of 2) 11/21/2021 Colorectal Cancer Screening: Colonoscopy 04/07/2022 Depression Screening 04/07/2022 HIV Screening 04/07/2022 Hepatitis C Screening 04/07/2022 Medicare Annual Wellness Visit 04/07/2022 Social Influencers of Health Screening 04/07/2022 COVID-19 Vaccine (4 - 2023-2 5 season) 2024 04/18/2021, 07/30/2020, 07/02/2020 Influenza Vaccine (#1) 2024 Cholesterol Screening (Lipid Panel) 04/09/2029 04/09/2024 DTaP,Tdap,and Td Vaccines (2 - Td or Tdap) 11/14/2031 11/13/2021 HIB Vaccines Aged Out No longer eligi ble based on patient's age to complete this topic HPV Vaccines Aged Out No longer eligi ble based on patient's age to complete this topic Hepatitis A Vaccines Aged Out No long er eligible based on patient's age to complete this topic IPV Vaccines Aged Out No longer eligi ble based on patient's age to complete this topic MMR Vaccines Aged Out No longer eligi ble based on patient's age to complete this topic Meningococcal ACWY Vaccine Aged Out N o longer eligible based on patient's age to complete this topic Meningococcal B Vacine Aged Out No lo nger eligible based on patient's age to complete this topic Pneumococcal Vaccine: Pediatrics (0 to 5 Years) and At-Risk Patients (6 to 64 Years) Aged Out No longer eligible b ased on patient's age to complete this topic RSV Immunization Patients Under 20 months Aged Out No longer eligible b ased on patient's age to complete this topic Varicella Vaccines Aged Out No longer eligible based on patient's age to complete this topic Procedures Procedure Name Priority Date/Time Associated Diagnosis Comments CBC WITH AUTO DIFFERENTIAL Routine 06/20/2024 10:38 AM EST Schizoaffective disorder, depressive type (CMS/HCC) Subchronic schizophrenia (CMS/HCC) Drug therapy CBC AND DIFFERENTIAL Routine 06/20/2024 10:38 AM EST Schizoaffective disorder, depressive type (CMS/HCC) Subchronic schizophrenia (CMS/HCC) Drug therapy CBC WITH AUTO DIFFERENTIAL Routine 05/10/2024 11:08 AM EST Schizoaffective disorder, depressive type (CMS/HCC) Subchronic schizophrenia (CMS/HCC) Drug therapy CBC AND DIFFERENTIAL Routine 05/10/2024 11:08 AM EST Schizoaffective disorder, depressive type (CMS/HCC) Subchronic schizophrenia (CMS/HCC) Drug therapy LIPID PANEL WITH REFLEX TO DIRECT LDL Routine 04/09/2024 11:27 AM EST Mixed hyperlipidemia from Last 3 Months or Most Recently Relevant to Health Maintenance Results * (ABNORMAL) CBC auto differential (06/20/2024 10:38 AM EST) Only the most recent of2 resultswithin the time period is included. WBC 5.3 4.8 - 10.8 K/mcL LAB HEMETOLOGY METHOD 06/20/2024 11:[address] [facility] RBC 4.50 4.50 - 5.50 M/mcL LAB HEMETOLOGY METHOD 06/20/2024 11:34 AM [facility] Hemoglobin 13.1(L) 13.5 - 17.5 g/dL LAB HEMETOLOGY METHOD 06/20/2024 11:34 AM [facility] Hematocrit 37.7(L) 42.0 - 54.0 % LAB HEMETOLOGY METHOD 06/20/2024 11:34 AM [facility] MCV 84.2 79.0 - 98.0 FL LAB HEMETOLOGY METHOD 06/20/2024 11:34 AM [facility] MCH 29.2 27.0 - 32.0 pcg LAB HEMETOLOGY METHOD 06/20/2024 11:34 AM [facility] MCHC 34.7 32.0 - 37.0 g/dL LAB HEMETOLOGY METHOD 06/20/2024 11:34 AM [facility] RDW 11.9 11.0 - 15.0 % LAB HEMETOLOGY METHOD 06/20/2024 11:34 AM [facility] Platelets 208 130 - 400 K/mcL LAB HEMETOLOGY METHOD 06/20/2024 11:34 AM [facility] MPV 9.4 7.0 - 11.0 FL LAB HEMETOLOGY METHOD 06/20/2024 11:34 AM [facility] NRBC 0.0 <1.0 % LAB HEMETOLOGY METHOD 06/20/2024 11:34 AM [facility] NRBC Absolute 0.00 <0.10 K/mcL LAB HEMETOLOGY METHOD 06/20/2024 11:34 AM [facility] Neutrophils Relative 59.8 % LAB HEMETOLOGY METHOD 06/20/2024 11:34 AM [facility] Lymphocytes Relative 32.3 % LAB HEMETOLOGY METHOD 06/20/2024 11:34 AM [facility] Monocytes Relative 6.2 % LAB HEMETOLOGY METHOD 06/20/2024 11:34 AM [facility] Eosinophils Relative 0.0 % LAB HEMETOLOGY METHOD 06/20/2024 11:34 AM [facility] Basophils Relative 0.2 % LAB HEMETOLOGY METHOD 06/20/2024 11:34 AM [facility] Immature Granulocytes Relative 1.5 % LAB HEMETOLOGY METHOD 06/20/2024 11:34 AM [facility] Neutrophils Absolute 3.17 1.50 - 7.00 K/mcL LAB HEMETOLOGY METHOD 06/20/2024 11:34 AM [facility] Lymphocytes Absolute 1.71 1.00 - 5.00 K/mcL LAB HEMETOLOGY METHOD 06/20/2024 11:34 AM [facility] Monocytes Absolute 0.33 0.20 - 1.00 K/mcL LAB HEMETOLOGY METHOD 06/20/2024 11:34 AM [facility] Eosinophils Absolute 0.00 0.00 - 0.50 K/mcL LAB HEMETOLOGY METHOD 06/20/2024 11:34 AM [facility] Basophils Absolute 0.01 0.00 - 0.20 K/mcL LAB HEMETOLOGY METHOD 06/20/2024 11:34 AM [facility] Immature Granulocytes Absolute 0.08(H) 0.00 - 0.03 K/mcL LAB HEMETOLOGY METHOD 06/20/2024 11:34 AM [facility] Blood Venous blood specimen / Unknown Venipuncture / Unknown 06/20/2024 10:38 AM EST 06/20/2024 10:59 AM EST us Lora Porter NP LAB BLOOD ORDERABLES Final Result [facility] [address] [place] [address], * (ABNORMAL) Lipid panel with reflex to direct LDL (04/09/2024 11:27 AM EST) Cholesterol 257(H) 0 - 200 mg/dL LAB CHEMISTRY METHOD 04/09/2024 2:[address] [facility] Triglycerides 102 0 - 150 mg/dL LAB CHEMISTRY METHOD 04/09/2024 2:[address] [facility] HDL 46 >=40 mg/dL LAB CHEMISTRY METHOD 04/09/2024 2:[address] [facility] LDL Calculated 191(H) 0 - 100 mg/dL LAB CHEMISTRY METHOD 04/09/2024 2:59 PM [facility] VLDL Cholesterol Randy 20.4 mg/dL LAB CHEMISTRY METHOD 04/09/2024 2:59 PM [facility] Non HDL Chol. (LDL+VLDL) 211(H) <145 mg/dL LAB CHEMISTRY METHOD 04/09/2024 2:[address] [facility] Chol/HDL Ratio 5.6(H) 0.0 - 4.4 LAB CHEMISTRY METHOD 04/09/2024 2:59 PM [facility] Blood Venous blood specimen / Unknown Venipuncture / Unknown 04/09/2024 11:27 AM EST 04/09/2024 12:14 PM EST Sy Swanson MD LAB BLOOD ORDERABLES Final Resu lt [facility] [address] [place] [address], [place] [phone] from Last 3 Months or Most Recently Relevant to Health Maintenance Insurance [facility] Member Subscriber Plan / Payer (Ef fective 2023-Present) Name:Prashanth Harrington Relation to Subscriber:Self Name:Prashanth Harrington Payer ID:[id number] Group ID:[id number] Type:Not on file Address: [address] [place] [address] [employer] MED[employer] Member Subscriber Plan / Payer (Ef fective 2023-Present) Name:Prashanth Harrington Relation to Subscriber:Self Name:Prashanth Harrington Payer ID:[id number] Group ID:[id number] Type:Not on file Address: [address] [place] [address] Care Teams Dog Hair Clipper Relationship Specialty Start Date End Date Lora Porter NP [address] [place], [place] PCP - General 06/20/24
--- OUTSIDE RECORDS SUMMARY | 2024-07-17 12:31 | XMS_ITS | Data Portability ---
Author Organization [email or web address], Me in - Patient [employer] Address [address] [place] [id number] Care Team Providers Care Operating Systems Specialist Name Role Phone HIM CCA OTHER TOSHIA ONEILL Primary Care Provider Assessment Encounter Date Assessment Date Assessment LastModified by Organization Details LastModified Time 06/12/2024 06/12/2024 Impression: 53yo/m who states no chronic medical conditions referred for evaluation for 3-4 days of respiratory symptoms. Patient seen by medic in the home. States had been in usual state of health, over last 3-4 days developed nasal congestion and rhinorrhea, sore throat, nonproductive cough, subjective fevers/chills. For medic in home patient is awake, alert, well appearing, in no distress. No associated chest pain or dyspnea. No associated headache, neurologic symptoms, neck pain or stiffness or meningismus. No rashes. No abdominal pain, vomiting or diarrhea, flank pain. Eating and drinking normally, ambulating comfortably, breathing comfortably. On medic exam neck is soft and supple without meningismus, lungs are CTAB without wheezing/crackle s/rhonchi. Abdomen soft and nontender. LE exam without edema, swelling, asymmetry. Denies other ROS. Plan: Patient describes 3-4 days of viral respiratory symptoms and medic eval shows re-assuring physical exam and vital signs. Covid and flu are negative. Patient is otherwise healthy. Impression is that this is likely a viral respiratory illness. I have a lower suspicion at this time for an occult emergency medical condition such as meningitis, encephalitis, READING PROFESSOR, RPA, pneumonia, sepsis. I believe it's reasonable for patient to continue with over the counter symptomatic medications, continue to observe symptoms at home, and followup with PMD in 24-48 hours for recheck. Instructed to seek care immediately with any acute worsening or change in symptoms which he understands. Discharged from visit with mandatory timed followup and strict return instructions reviewed. Primary care, consider 48 hour followup if symptoms persist. Disposition: We discussed the diagnostic uncertainty of home visits and the risk associated with this. In this case, the patient and I felt this to be an acceptable and reasonable amount of risk given the benefit of avoiding an ED visit. We discussed the need to seek care urgently/emergen tly in the setting of any new or worsening serious symptoms [email or web address] Not available 06/12/2024 14:23:11 Plan of Treatment Reminders Order Date Submit Date Provider Last Modified By Organization Details Last Modified Time Details Appointments None recorded. Lab rapid SARS CoV 2 Ag, QL IA, respiratory specimen 2024 025 rsullivan 84 [facility], [address] [place] [address], [id number], 14:18:11 rapid flu (A+B) 2024 025 rsullivan 84 [facility], [address] [place] [address], [id number], 14:18:11 Referral None recorded. Procedures None recorded. Surgeries None recorded. Imaging None recorded. Medication Orders None recorded. Patient TargetsNo targets recorded. Patient InstructionsNo instructions recorded. Reason for Referral None Reported. Results Created Date Observation Date Name Description Value Unit Range Abnormal Flag Note LastModifiedBy Organization Detail LastModifiedTime Result Notes None recorded. Medical Equipment None Reported. Allergies Allergen ID Allergen Name Allergen Category Reaction Reaction Severity Criticality Documentation Date Start Date Code Code System Note Provider Name and Address Organization Details Recorded Time 93244 Bactrim medicatio n Not available Not available Not available 06/12/2024 73198 9 RxNorm Not Available [facility] - production 11:52:09 Medications Name Sig Start Date Stop Date Status Note LastModified by Organization Details LastModified Time clozapine 100 mg tablet TAKE 2 TABLET BY MOUTH EVERY NIGHT AT BEDTIME active Not Available Not Available No t Available clonazepam 0.5 mg tablet TAKE 1 TABLET BY MOUTH EVERY DAY active Not Available Not Available No t Available Vitals Date Recorded Body weight Body temperature Oxygen saturation Oxygen saturation in Arterial blood by Pulse oximetry Respiratory rate Body height Heart rate Systolic blood pressure Diastolic blood pressure Provider Name and Address Organization Details Last Updated DateTime 258954. 016 g 98 [degF] 94 % 94 % 18 /min 180.34 cm 98 /min 134 mm[Hg] 87 mm[Hg] Not Available [facility] - production 14:14:14 Social History None recorded. Functional Status None recorded. Mental Status None recorded. Family History Nothing Reported. Medical History No medical history recorded. Past Encounters Encounter ID Performer Location Encounter Start Date Encounter Closed Date Diagnosis/Indication Diagnosis SNOMED-CT Code Diagnosis ICD10 Code Diagnosis Note [id number] Tino Aguilar MD [facility] - [facility] [address] [place] [address] 06/12/2024 14:14:07 06/12/2024 17:24:02 Upper respiratory infection 49989560 J06.9 Health Concerns Section Related Observation LastModified by Organization Detai ls LastModified Time None Recorded Concern Status LastModified by Organization Details LastModified Time None Recorded Advance Directives Directive None Recorded Payers Encounter Date Sequence Insurance Name Policy Number Policy [place] Covered Member ID [place] Member ID Guarantor Name 06/12/2024 1 [facility] - DOS ON OR AFTER 2022 - DUAL ELIGIBLE - JAIL OPTIONS AND ONE CARE (MEDICARE REPLACEMENT/ADV ANTAGE - HMO) Prashanth Harrington [id number] Prashanth Harrington Notes Date Note Type Note Provider Name and Address Organization Details Recorded Time 06/12/2024 text/html [facility] Nurse Triage Notes (Susan Chavez - RN): Reason For Request: pt stated he has had a fever and cold symptoms for 3 days Chief Complaints: Common cold symptoms, Cough, Fever/chills PMH: Hyperlipidemia, Appendectomy PMH Reviewed at 06/12/2024 - 11:52 Allergies Reviewed at 06/12/2024 - 11:52 Comments: Patient calling in to place a referral, identified via name and . Patient with a 4 day history of cold symptoms. He reports a subjective fever overnight, but no current fever/chills. Patient with a productive cough, chest congestion and scratchy throat. He denies any shortness of breath or chest pain, no headache or dizziness, no nausea, vomiting or diarrhea. He would like to be evaluated. Wall Covering Contractor Organization Information for Bess [facility] Name: [employer]? Address: [address] [place] [address] [place], [place] [address], Wholesale Diamond Broker: Derek Chow MD ALEX No.: [id number] Wall Covering Contractor POC Test Results from [facility] - BLS Rapid COVID antigen (13:59:51) COVID: - Rapid influenza antigen (13:59:52) Flu: - Rapid strep test (14:24:46) Strep: - .................. .................. .................. .................. .................. .................. .................. ............... Wall Covering Contractor Note From [facility]: SC1 dispatched to the above address for the pt requesting testing due to cold and flu like symptoms. Upon arrival the pt was walking around outside his apartment. The pt stated he has been having a cough and possibly a fever for the last 3/4 days. The pt was tested for covid ,flu and strep and all came back negative. The pt did not have a fever when tested either. The pt states he has been taking Zycam tablets in the am. The pt stated he has had a slight cough but nothing serious. Dr Aguilar was consulted and feels the pt is ahead of the curve taking his OTC medications and also staying hydrated. The pt was advised of the warning signs, chest pain, severe shortness of breath, syncope and altered mental status to call right away. The pt understood the instructions and SC1 cleared the call. WRR .................. .................. .................. .................. .................. .................. .................. ............... [facility] Consulted: Tino Aguilar .................. .................. .................. .................. .................. .................. .................. ............... Disposition: Fulfilled Tino Aguilar MD [address] [facility],[address], [place], [address], RE CONDE 06/12/2024 14:33:11
== END 2024-07-17 10:50 | disposition home or self-care (01) ==
LOC: HO.HMCH 10:28
PROVIDERS: PCP Internal Medicine; Visit Provider Internal Medicine
DX: F31.9 Bipolar disorder, unspecified (principal)

== ENCOUNTER → 2024-07-17 10:27 | Outpatient (BNVA) | payer OTHER, SELFPAY | PROVIDERS: PCP Internal Medicine; Visit Provider Internal Medicine | DX: F31.9 Bipolar disorder, unspecified (principal) | CPT/HCPCS: 99212 ==

== ENCOUNTER 2024-08-15 10:48 | Outpatient (RCR) | payer OTHER, SELFPAY ==
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
== END 2024-11-27 07:11 | disposition home or self-care (01) ==
LOC: HO.PTS 10:48
PROVIDERS: PCP Internal Medicine; Visit Provider Internal Medicine
DX: M25.511 Pain in right shoulder (principal)
CPT/HCPCS: 97110; 97140; 97161; 97535

== ENCOUNTER 2024-11-27 10:03 | Outpatient (AMB) | payer OTHER, SELFPAY ==
[2024-11-27 10:10] VITALS: BP 128/80; PULSE 100; O2SAT 98; BMI 33.5
--- NOTE | 2024-11-27 10:10 | MHC.PC.OV ---
Vital Signs 11/27/24 10:10 Height 5 ft 10 in Weight 233 lb 4 oz BMI 33.5 BP 128/80 Blood Pressure Location Lt brachial Position Sitting Pulse 100 Pulse Source Pulse Oximeter Pulse Oximetry (%) 98 Oxygen Delivery Method Room Air Intake Visit Reasons: Transfer from [facility] 3 month f/ Safety And Health Consultant Required: No Accompanied by: Self / Same As Patient Allergies sulfamethoxazole (From Sulfamethoxazole-Trimethoprim) Allergy (Intermediate, Verified 11/27/24 10:54) Swelling trimethoprim (From Sulfamethoxazole-Trimethoprim) Allergy (Intermediate, Verified 11/27/24 10:54) Swelling bees Allergy (Intermediate, Uncoded 11/27/24 10:54) Hives Medication List - Last Reconciled 11/27/24 by Anthony Ford MD clonazepam 0.5 mg PO DAILY PRN clozapine 200 mg PO DAILY epinephrine (EpiPen 2-Pal) 0.3 mg (0.3 mL) IM Q4H PRN selenium sulfide 2.5% 1 appl topical DAILY 7 days sildenafil (Viagra) 50 mg PO DAILY PRN Tobacco use date assessed: 11/27/24 Dental Screening Dental Screen Date: 11/27/24 Did you have a dental visit in the last 12 months?: No Did you have a dental problem in the last 6 months where you did not have access to dental care?: No Was dental information given to patient?: No HPI Transfer from [facility] 3 month f/u HPI Details Patient comes in today for his follow up visit - is transferring over from Dr. Swanson, who retired from the practice a few months ago Patient states that he feels okay He is still seeing psychiatry regularly every 3 months or so for continuing management of his bipolar disorder and Clozapine prescription He denies any headaches or dizziness Denies any chest pains, no SOB No nausea/vomiting, no abdominal pain No change in bowel habits noted States that he will need his Clonazepam Rx refilled and that he takes it only on an as-needed basis and not everyday He has not had any follow up labs done for his cholesterol in over 2 years now and states that he has also never had a screening colonoscopy done and is wondering if he can do a Cologuard test instead at this time He reports no increased risk for colon cancer both in the family and personally [facility] Medical History (Updated 11/27/24 @ 11:08 by Anthony Ford MD) Obesity (BMI 30-39.9) Pure hypercholesterolemia Hyperlipidemia Abscess of forehead Bee sting allergy Bipolar disorder Surgical History (Updated 11/27/24 @ 10:58 by Anthony Ford MD) History of surgery of head History of appendectomy Family History Mother Stroke Father No problems noted. Social History Housing: House Alcohol intake: never Patient Tobacco Use Status: Former Tobacco user Tobacco use type: Cigar e-Cigarette/Vaping Use: Never Used Second Hand Smoke Exposure: Yes service: No Current occupational status: unemployed Cognitive needs: No Hearing needs: No Vision needs: No Questionnaire PHQ-9 Over the last 2 weeks, how often have you been bothered by any of the following problems? 1. Little interest or pleasure in doing things: not at all 2. Feeling down, depressed, or hopeless: not at all 3. Trouble falling or staying asleep, or sleeping too much: not at all 4. Feeling tired or having little energy: not at all 5. Poor appetite or overeating: not at all 6. Feeling bad about yourself - or that you are a failure or have let yourself or your family down: not at all 7. Trouble concentrating on things, such as reading the newspaper or watching television: not at all 8. Moving or speaking so slowly that other people could have noticed. Or the opposite - being so fidgety or restless that you have been moving around a lot more than usual: not at all 9. Thoughts that you would be better off or of hurting yourself in some way: not at all Total score: 0 Depression Screening Interpretation: Negative Depression Screening Done: Yes 37313 - PHQ-9 Billing: Yes Source: Developed by Drs. Tyler Matos, Hanny Hampton, Alfredo Crawford and colleagues, with an educational nawaf from [employer]. Thrive Questionnaire Date Thrive assessed: 11/27/24 I am a: Patient What is your living situation today?: I have a steady place to live Within the past 12 months, did the food you bought not last and you didn't have the money to get more?: Never true Within the past 12 months, did you worry whether your food would run out before you got money to buy more?: Never true Do you have trouble paying for medicines?: No Do you have trouble getting transportation to medical appointments?: No Do you have trouble paying your heating and electricity bill?: No Do you have trouble taking care of your child, family member or friend?: No Do you have trouble with day-to-day activities such as bathing, preparing meals, shopping, managing finances, etc.?: No Are you currently unemployed and looking for a job?: No Are you interested in more education?: No Please select the resources that you would like help with: None Currently or been in a relationship where the following occur: No concerns reported THRIVE Score: 0 AUDIT C Alcohol Use Questionnaire (AUDIT-C) 1. How often do you have a drink containing alcohol?: Never 3. How often do you have six or more drinks on one occasion?: Never Total Score: 0 Score Reviewed/Action Taken: Yes HERNÁN-7 AMB Questionnaire HERNÁN-7 Date HERNÁN - 7 assessed: 11/27/24 Feeling nervous, anxious, or on edge: 0 = Not at all Not being able to stop or control worryin = Not at all Worrying too much about different things: 0 = Not at all Trouble relaxin = Not at all Being so restless that it is hard to sit still: 0 = Not at all Becoming easily annoyed or irritable: 0 = Not at all Feeling afraid as if something awful might happen: 0 = Not at all Total HERNÁN-7 score (0-4 normal; 5-9 mild; 10-14 moderate; 15-21 severe): 0 Source: Developed by Drs. Tyler Matos, Hanny Hampton, Alfredo Crawford and colleagues, with an educational nawaf from [employer]. Review of Systems Const Denies chills, Denies fatigue, Denies fever(s) and Denies headache(s) ENT Denies dysphagia, Denies dizziness, Denies otalgia, Denies headache(s), Denies neck pain, Denies odynophagia and Denies sore throat Card Denies chest pain, Denies palpitations and Denies dyspnea Resp Denies chest congestion, Denies cough and Denies dyspnea GI Denies abdominal pain, Denies constipation, Denies dysphagia, Denies heartburn, Denies diarrhea, Denies nausea, Denies odynophagia and Denies vomiting Denies difficulty urinating, Denies dysuria, Denies nocturia and Denies urinary frequency Musc Denies back pain and Denies neck pain Neuro Denies dizziness and Denies headache(s) Psych Reports anxiety (controlled) Endo Denies fatigue and Denies palpitations Physical exam (Primary Care) Vital Signs: Last Vital Signs Pulse 100 11/27/24 10:10 BP 128/80 11/27/24 10:10 Pulse Ox 98 11/27/24 10:10 Oxygen Delivery Method Room Air 11/27/24 10:10 BMI result Body Mass Index 33.5 Tobacco/Smoking Status: Tobacco use Status Tobacco use date assessed 11/27/24 11/27/24 10:11 Patient Tobacco Use Status Former Tobacco user 11/27/24 10:11 Tobacco use type Cigar 11/27/24 10:11 e-Cigarette/Vaping Use Never Used 11/27/24 10:11 PHQ-9: PHQ-9 Score PHQ-9: Total score 0 11/27/24 10:11 Depression Screening Interpretation: Negative Thrive Assessment: Date of Thrive Assessment Date Thrive assessed 11/27/24 11/27/24 10:11 Currently or been in a relationship where the following occur: No concerns reported Const General: no acute distress and alert HENMT Throat: Yes posterior oropharynx normal and Yes tonsils normal (no TP congestion) Neck Neck: No supple and No lymphadenopathy Thyroid: Thyroid normal Resp Auscultation: clear to auscultation bilaterally, no rales and no wheezes Cardio Rate: regular rate Rhythm: regular rhythm Heart sounds: no murmurs GI Palpation (GI): Soft to palpation and nontender Auscultation: normal bowel sounds General: Yes no CVA tenderness Back/Spine/Pelvis Back: no CVA tenderness Thoracic/Lumbar Spine: No lumbar spinal tenderness Skin Rashes: no rashes Extrem General: Yes no clubbing, cyanosis or edema Coding Level of Care Code Est Pt Level 4 (93892) Diagnoses Pure hypercholesterolemia E78.00 Impaired fasting glucose R73.01 Bipolar affective disorder, current episode mixed, current episode severity unspecified F31.60 Active/Remission status: currently active Current bipolar episode type: mixed Current episode severity: unspecified Obesity (BMI 30-39.9) E66.9 Colon cancer screening Z12.11 Additional Codes PHQ-9 - 64864 - PHQ-9 Billing: Yes ([id number]) Assessment & Plan Assessment & Plan (1) Pure hypercholesterolemia: Code(s): E78.00 - Pure hypercholesterolemia, unspecified Category: Medical Plan: Patient has not had any follow up labs done since 2021 - his LDL cholesterol was at 186 mg/dl back then, which he states has come down as it was over 200 mg/dl at one point Reinforced low cholesterol diet Will have patient recheck his labs and fasting lipids in 3 months for follow up (2) Impaired fasting glucose: Code(s): R73.01 - Impaired fasting glucose Category: Medical Plan: His FBS was also elevated at 121 mg/dl when it was last checked in 2021 Discussed low calorie/low carb diet Will have patient recheck his FBS and will also check his HgbA1c in 3 months for further evaluation (3) Bipolar disorder: Code(s): F31.9 - Bipolar disorder, unspecified Category: Medical Qualifiers: Active/Remission status: currently active Current bipolar episode type: mixed Current episode severity: unspecified Qualified Code(s): F31.60 - Bipolar disorder, current episode mixed, unspecified Plan: Continue Clozapine 200 mg QD and Clonazepam 0.5 mg QD PRN (Rx refilled) Follow up with psychiatry as scheduled (4) Obesity (BMI 30-39.9): Code(s): E66.9 - Obesity, unspecified Category: Medical Plan: Reinforced diet/exercise as tolerated/lose weight (5) Colon cancer screening: Code(s): Z12.11 - Encounter for screening for malignant neoplasm of colon Category: Medical Plan: Patient states that he has never had a screening colonoscopy done in the past Would like to see if he can just do Cologuard testing at this time - Cologuard test ordered Plan Follow up in 3 months Orders: Orders Complete Blood Count Auto Diff 3 Months D64.9 - Anemia, unspecified Lipid Panel 3 Months E78.00 - Pure hypercholesterolemia, unspecified TSH reflex Free T4 3 Months E78.00 - Pure hypercholesterolemia, unspecified UA CC w/rflx Micro + Cult 3 Months R30.0 - Dysuria Vitamin D 25-OH Total 3 Months E55.9 - Vitamin D deficiency, unspecified Comprehensive [place]. Panel Fast 3 Months E78.00 - Pure hypercholesterolemia, unspecified Hemoglobin A1c 3 Months R73.01 - Impaired fasting glucose Referrals Cologuard Test Z12.11 - Encounter for screening for malignant neoplasm of colon, Z12.12 - Encounter for screening for malignant neoplasm of rectum Medications: Changed From clonazepam 0.5 mg PO DAILY 30 tabs 3RF To clonazepam 0.5 mg PO DAILY PRN 30 tabs 1RF anxiety
--- OUTSIDE RECORDS SUMMARY | 2024-11-27 11:01 | XMS_ITS | Clinical Summary ---
Author Organization [facility] Address [address] [place] [address] Phone Care Team Providers Care Senior Net C Developer Name Role Phone Lora Porter NP Primary Care Provider [phone]- [phone] Social History Tobacco Use Types Packs/Day Years [...] 2) 11/21/2021 Colorectal Cancer Screening: Colonoscopy 04/07/2022 HIV Screening 04/07/2022 Hepatitis C Screening 04/07/2022 Medicare Annual Wellness Visit 04/07/2022 Social Influencers of Health Screening 04/07/2022 COVID-19 Vaccine (4 - 2023-2 5 season) 2024 04/18/2021, 07/30/2020, 07/02/2020 Depression Screening 05/09/2024 Influenza Vaccine (#1) 2025 Cholesterol Screening (Lipid Panel) 04/09/2029 04/09/2024 DTaP,Tdap,and [...] age to complete this topic Meningococcal B Vaccine Aged Out No l onger eligible based on patient's age to complete this topic RSV Immunization Patients Under 20 months Aged Out No longer eligible b ased on patient's age to complete this topic Varicella Vaccines Aged Out No longer eligible based on patient's age to complete this topic Procedures Procedure Name Priority Date/Time Associated Diagnosis Comments CBC WITH AUTO DIFFERENTIAL Routine 10/31/2024 10:14 AM EDT Drug therapy CBC AND DIFFERENTIAL Routine 10/31/2024 10:14 AM EDT Drug therapy CBC WITH AUTO DIFFERENTIAL Routine 10/02/2024 9:03 AM EDT Drug therapy CBC AND DIFFERENTIAL Routine 10/02/2024 9:03 AM EDT Drug therapy LIPID PANEL WITH REFLEX TO DIRECT LDL Routine 04/09/2024 11:27 AM EST Mixed hyperlipidemia from Last 3 Months or Most Recently Relevant to Health Maintenance Results * (ABNORMAL) CBC auto differential (10/31/2024 10:14 AM EDT) Only the most recent of2 resultswithin the time period is included. WBC 4.7(L) 4.8 - 10.8 K/mcL LAB [facility] RBC 4.50 4.50 - 5.50 M/mcL LAB HEMETOLOGY METHOD 10/31/2024 12:37 PM [facility] Hemoglobin 13.2(L) 13.5 - 17.5 g/dL LAB HEMETOLOGY METHOD 10/31/2024 12:37 PM [facility] Hematocrit 38.6(L) 42.0 - 54.0 % LAB HEMETOLOGY METHOD 10/31/2024 12:37 PM EDT [facility] MCV 86.7 79.0 - 98.0 FL LAB HEMETOLOGY METHOD 10/31/2024 12:37 PM EDT [facility] MCH 29.7 27.0 - 32.0 pcg LAB HEMETOLOGY METHOD [facility] MCHC 34.2 32.0 - 37.0 g/dL LAB HEMETOLOGY METHOD 10/31/2024 12:37 PM EDT [facility] RDW 12.6 11.0 - 15.0 % LAB HEMETOLOGY METHOD 10/[facility]24 [facility] Platelets 159 130 - 400 K/mcL LAB HEMETOLOGY METHOD 10/31[facility]24 [facility] MPV 10.0 7.0 - 11.0 FL LAB HEMETOLOGY METHOD 10/31[facility]2024 [facility] NRBC 0.0 <1.0 % LAB HEMETOLOGY METHOD 10/31[facility]24 [facility] NRBC Absolute 0.00 <0.10 K/mcL LAB HEMETOLOGY METHOD 10/31[facility]2024 [facility] Neutrophils Relative 58.9 % LAB HEMETOLOGY METHOD 10/31/2024 12:37 PM [facility] Lymphocytes Relative 33.3 % LAB HEMETOLOGY METHOD 10/31[facility]24 [facility] Monocytes Relative 7.4 % LAB HEMETOLOGY METHOD 10/31/2024 12[facility] Eosinophils Relative 0.0 % LAB HEMETOLOGY METHOD 10/31/2024 12[facility] Basophils Relative 0.0 % LAB HEMETOLOGY METHOD 10/31/2024 12[facility] Immature Granulocytes Relative 0.4 % LAB HEMETOLOGY METHOD 10/31/2024 12:37 PM EDT [facility] Neutrophils Absolute 2.77 1.50 - 7.00 K/mcL LAB HEMETOLOGY METHOD 10/31/2024 12:37 PM EDT [facility] Lymphocytes Absolute 1.57 1.00 - 5.00 K/mcL LAB HEMETOLOGY METHOD 10/31/2024 12:37 PM EDT [facility] Monocytes Absolute 0.35 0.20 - 1.00 K/mcL LAB HEMETOLOGY METHOD 10/31/2024 12:37 PM EDT [facility] Eosinophils Absolute 0.00 0.00 - 0.50 K/mcL LAB HEMETOLOGY METHOD 10/31/2024 12:37 PM EDT [facility] Basophils Absolute 0.00 0.00 - 0.20 K/mcL LAB HEMETOLOGY METHOD 10/31/2024 12:37 PM EDT [facility] Immature Granulocytes Absolute 0.02 0.00 - 0.03 K/mcL LAB HEMETOLOGY METHOD 10/31/2024 12:37 PM EDT [facility] Blood Venous blood specimen / Unknown Venipuncture / Unknown 10/31/2024 10:14 AM EDT 10/31/2024 12:19 PM EDT us Lora Porter RN PACU LAB BLOOD ORDERABLES Final Result [facility] [address] [place] [address], * (ABNORMAL) Lipid panel with reflex to direct LDL (04/09/2024 11:27 AM EST) Cholesterol 257(H) 0 - 200 mg/dL LAB CHEMISTRY METHOD 04/09/2024 2:59 PM EST [facility] Triglycerides 102 0 - 150 mg/dL LAB CHEMISTRY METHOD 04/09/2024 2:59 PM EST [facility] HDL 46 >=40 mg/dL LAB CHEMISTRY METHOD 04/09/2024 2:59 PM EST [facility] LDL Calculated 191(H) 0 - 100 mg/dL LAB CHEMISTRY METHOD 04/09/2024 2:59 PM EST [facility] VLDL Cholesterol Randy 20.4 mg/dL LAB CHEMISTRY METHOD 04/09/2024 2:59 PM EST [facility] Non HDL Chol. (LDL+VLDL) 211(H) <145 mg/dL LAB CHEMISTRY METHOD 04/09/2024 2:59 PM [facility] Chol/HDL Ratio 5.6(H) 0.0 - 4.4 LAB CHEMISTRY METHOD 04/09/2024 2:59 PM EST [facility] Blood Venous blood specimen / Unknown Venipuncture / Unknown 04/09/2024 11:27 AM EST 04/09/2024 12:14 PM EST us Sy Swanson MD LAB BLOOD ORDERABLES Final Resu lt [facility] [address] [place] [address], from Last 3 Months or Most Recently Relevant to Health Maintenance Insurance [facility] [employer] MEDICARE Member Subscriber Plan / Payer (Ef fective 2023-Present) Name:GISSELLE HSU Relation to Subscriber:Self Name:Gisselle Hsu Payer ID:[id number] Group ID:[id number] Type:Not on file Address: [place] [facility] [place] [address] Care Teams Senior Net C Developer Relationship Specialty Start Date End Date Lora Porter NP [place], [place] PCP - General 06/20/24
--- OUTSIDE RECORDS SUMMARY | 2024-11-27 11:01 | XMS_ITS | Data Portability ---
Author Organization [facility], [facility] Address [address] [place] [address] Care Team Providers Care Referral And Information Aide Name Role Phone HIM CCA OTHER TOSHIA ONEILL Primary Care Provider [phone] Assessment Encounter Date Assessment Date Assessment LastModified [...] emergency medical condition such as meningitis, encephalitis, SUPERVISOR H[employer] M[employer], RPA, pneumonia, sepsis. I believe it's reasonable [...] of any new or worsening serious symptoms Not available 06/12/2024 14:23:11 Plan of Treatment Reminders Order Date Submit Date Provider Last Modified By Organization Details Last Modified Time Details Appointments None recorded. Lab rapid SARS CoV 2 Ag, QL IA, respiratory specimen 2024 [address], [phone] 14:18:11 rapid flu (A+B) 2024 [address], [address] 14:18:11 Referral None recorded. Procedures None recorded. [...] Name and Address Organization Details Recorded Time 86321 Bactrim medicatio n Not available Not available Not available 06/12/2024 05445 9 RxNorm Not Available [facility] - production [...] Respiratory rate Body height Heart rate Systolic And Diastolic Provider Name and Address Organization Details Last Updated DateTime 5 011114. 016 g 98 [degF] 94 % 94 % 18 /min 180.34 cm 98 /min 134/87 mm[Hg] Not Available [facility] - production 14:14:14 Social History None recorded. Functional Status None recorded. Mental Status None recorded. Family History Nothing Reported. Medical History No medical history recorded. Past Encounters Encounter ID Performer Location Encounter Start Date Encounter Closed Date Diagnosis/Indication Diagnosis SNOMED-CT Code Diagnosis ICD10 Code Diagnosis Note [id number] Tino Aguilar MD Main - [facility] [address] [place] [phone] 06/12/2024 14:14:07 06/12/2024 17:24:02 Upper respiratory infection 65297161 J06.9 Health Concerns Section Related Observation LastModified by Organization Detai ls LastModified Time None Recorded Concern Status LastModified by Organization Details LastModified Time None Recorded Advance Directives Directive None Recorded Payers Insurance Date Sequence Insurance Name Policy Number Policy [place] Covered Member ID [place] Member ID Guarantor Name 06/12/2024 1 [facility] - DOS ON OR AFTER 2022 - DUAL ELIGIBLE - CUSTODIAL OPTIONS AND ONE CARE (MEDICARE REPLACEMENT/ADV ANTAGE - HMO) Prashanth Harrington [id number] Prashanth Harrington Notes Date Note Type Note [...] diarrhea. He would like to be evaluated. It Programmer Analyst Organization Information for [facility] [facility] [employer] Legal Name: [employer]. Address: [address] [place] [address], Packing Tractor Machine Operator: Derek Chow MD CLIA No.: [id number] It Programmer Analyst POC Test Results from [facility] - BLS Rapid COVID antigen (13:59:51) COVID: - Rapid influenza antigen (13:59:52) Flu: - Rapid strep test (14:24:46) Strep: - .................. .................. .................. .................. .................. .................. .................. ............... It Programmer Analyst Note From [facility]: SC1 dispatched to [...] .................. .................. .................. .................. .................. .................. ............... [facility] Consulted: Tino Aguilar .................. .................. .................. .................. .................. .................. .................. ............... Disposition: Fulfilled Tino Aguilar MD [address] [facility],[address], [place], [address], ANA - RE AYALA 06/12/2024 14:33:11
== END 2024-11-27 10:56 | disposition home or self-care (01) ==
LOC: HO.HMCH 10:03
PROVIDERS: PCP Internal Medicine; Visit Provider Internal Medicine
DX: E78.00 Pure hypercholesterolemia, unspecified (principal); F31.60 Bipolar disorder, current episode mixed, unspecified; E66.9 Obesity, unspecified; Z68.33 Body mass index [BMI] 33.0-33.9, adult; R73.01 Impaired fasting glucose; Z12.11 Encounter for screening for malignant neoplasm of colon

== ENCOUNTER → 2024-11-27 10:03 | Outpatient (BNVA) | payer OTHER, SELFPAY | PROVIDERS: PCP Internal Medicine; Visit Provider Internal Medicine | DX: R73.01 Impaired fasting glucose (principal); F31.60 Bipolar disorder, current episode mixed, unspecified; E78.00 Pure hypercholesterolemia, unspecified; E66.9 Obesity, unspecified; Z68.33 Body mass index [BMI] 33.0-33.9, adult | CPT/HCPCS: 96127; 99212 ==

== ENCOUNTER 2025-02-06 08:24 | Outpatient (AMB) | payer OTHER, SELFPAY ==
--- NOTE | 2025-02-06 08:26 | MHC.PC.OV ---
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 Financial Services Intern: Not Required per policy Accompanied by: Self / Same As Patient Allergies sulfamethoxazole (From Sulfamethoxazole-Trimethoprim) Allergy (Intermediate, Verified 02/06/25 08:27) Swelling trimethoprim (From Sulfamethoxazole-Trimethoprim) Allergy (Intermediate, Verified 02/06/25 08:27) Swelling bees Allergy (Intermediate, Uncoded 02/06/25 08:27) Hives Medication List - Last Reconciled 02/06/25 by Osmany Tilley MD clonazepam 0.5 mg PO DAILY PRN clozapine 200 mg PO DAILY epinephrine (EpiPen 2-Pal) 0.3 mg (0.3 mL) IM Q4H PRN selenium sulfide 2.5% 1 appl topical DAILY 7 days sildenafil (Viagra) 50 mg PO DAILY PRN Tobacco use date assessed: 02/06/25 Dental Screening Dental Screen Date: 11/27/24 HPI HPI Comments History of Present Illness Details The patient is a 54-year-old male presenting with numbness on the left side of the face and left arm. The numbness began approximately 10 days ago after lifting heavy appliances, initially affecting the left side of the face from the ear to the nose and eye, and later involving the left arm, particularly the forearm. The patient reports that the numbness worsens throughout the day, especially with increased activity, but noted some improvement following a massage. The patient visited the emergency department at [facility] where an EKG and blood work were performed, both of which were reported as normal. No imaging studies such as a CT scan were conducted at that time, and the patient was advised to follow up with primary care. There is no reported weakness, and the patient denies any other significant symptoms apart from a headache on the first day of numbness, which has not recurred. [facility] Medical History (Updated 02/06/25 @ 09:01 by Osmany Tliley MD) Obesity (BMI 30-39.9) Pure hypercholesterolemia Hyperlipidemia Abscess of forehead Bee sting allergy Bipolar disorder Surgical History History of surgery of head History of appendectomy Family History Mother Stroke Father No problems noted. Social History Housing: House Alcohol intake: never Patient Tobacco Use Status: Former Tobacco user Tobacco use type: Cigar e-Cigarette/Vaping Use: Never Used Second Hand Smoke Exposure: Yes service: No Current occupational status: unemployed Cognitive needs: No Hearing needs: No Vision needs: No Questionnaire Thrive Questionnaire Date Thrive assessed: 11/27/24 I am a: Patient What is your living situation today?: I have a steady place to live Within the past 12 months, did the food you bought not last and you didn't have the money to get more?: Never true Within the past 12 months, did you worry whether your food would run out before you got money to buy more?: Never true Do you have trouble paying for medicines?: No Do you have trouble getting transportation to medical appointments?: No Do you have trouble paying your heating and electricity bill?: No Do you have trouble taking care of your child, family member or friend?: No Do you have trouble with day-to-day activities such as bathing, preparing meals, shopping, managing finances, etc.?: No Are you currently unemployed and looking for a job?: No Are you interested in more education?: No Please select the resources that you would like help with: None Currently or been in a relationship where the following occur: No concerns reported THRIVE Score: 0 HERNÁN-7 AMB Questionnaire HERNÁN-7 Date HERNÁN - 7 assessed: 11/27/24 Source: Developed by Drs. Tyler Matos, Hanny Hampton, Alfredo Crawford and colleagues, with an educational nawaf from [employer] Review of Systems Const Details: Positives besides what was mentioned in HPI are in BOLD Constitutional: No Weight Change, No Fever, No Chills, No Night Sweats, No Fatigue, No Malaise ENT/Mouth: No Hearing Changes, No Ear Pain, No Nasal Congestion, No Sinus Pain, No Hoarseness, No sore throat, No Rhinorrhea, No Swallowing Difficulty Eyes: No Eye Pain, No Swelling, No Redness, No Foreign Body, No Discharge, No Vision Changes Cardiovascular: No Chest Pain, No SOB, No PND, No Dyspnea on Exertion, No Orthopnea, No Claudication, No Edema, No Palpitations Respiratory: No Cough, No Sputum, No Wheezing, No Smoke Exposure, No Dyspnea Gastrointestinal: No Nausea, No Vomiting, No Diarrhea, No Constipation, No Pain, No Heartburn, No Anorexia, No Dysphagia, No Hematochezia, No Melena, No Flatulence, No Jaundice Genitourinary: No Dysmenorrhea, No DUB, No Dyspareunia, No Dysuria, No Urinary Frequency, No Hematuria, No Urinary Incontinence, No Urgency, No Flank Pain, No Urinary Flow Changes, No Hesitancy Musculoskeletal: No Arthralgias, No Myalgias, No Joint Swelling, No Joint Stiffness, No Back Pain, No Neck Pain, No Injury History Skin: No Skin Lesions, No Pruritis, No Hair Changes, No Breast/Skin Changes, No Nipple Discharge Neuro: No Weakness, No Numbness, No Paresthesias, No Loss of Consciousness, No Syncope, No Dizziness, No Headache, No Coordination Changes, No Recent Falls Psych: No Anxiety/Panic, No Depression, No Insomnia, No Personality Changes, No Delusions, No Rumination, No SI/HI/AH/VH, No Social Issues, No Memory Changes, No Violence/Abuse Hx., No Eating Concerns Heme/Lymph: No Bruising, No Bleeding, No Transfusions History, No Lymphadenopathy Endocrine: No Polyuria, No Polydipsia, No Temperature Intolerance Physical exam (Primary Care) Vital Signs: Last Vital Signs Temp 97.1 F 02/06/25 08:28 Pulse 95 02/06/25 08:28 BP 130/80 02/06/25 08:28 Pulse Ox 98 02/06/25 08:28 Oxygen Delivery Method Room Air 02/06/25 08:28 BMI result Body Mass Index 33.2 Tobacco/Smoking Status: Tobacco use Status Tobacco use date assessed 02/06/25 02/06/25 08:35 Patient Tobacco Use Status Former Tobacco user 02/06/25 08:27 Tobacco use type Cigar 02/06/25 08:27 e-Cigarette/Vaping Use Never Used 02/06/25 08:27 Thrive Assessment: Date of Thrive Assessment Date Thrive assessed 11/27/24 02/06/25 08:27 Currently or been in a relationship where the following occur: No concerns reported Const Other: Pertinent findings are in BOLD GENERAL APPEARANCE NAD, activity normal for age, well developed/ well nourished, no cyanosis, pallor, or diaphoresis. EYES lids/conjunctiva normal. EARS/NOSE/THROAT Mucous membranes moist, nares normal, lips/teeth normal uvula midline without oral pharyngeal erythema, exudate or swelling TMs normal bilaterally. No lymphangitis/lymphedema. HEAD/NECK normocephalic atraumatic, no facial trauma, neck is supple. RESPIRATORY respiratory effort normal, speaks in full sentences, no tripod position, no accessory muscle use. Lungs clear to auscultation without rhonchi, wheezes, rales CARDIAC Regular rate and rhythm, no edema. ABDOMINAL Soft, ND/NT. No evidence of fluid wave. No pulsatile masses on exam, rebound tenderness, Aguilera sign or pain over Mcburney's point. MUSCLES/EXTREMITIES No abnormal range of motion, no swelling. SKIN Warm, pink and dry. No rashes, dermatoses, petechiae or lesions. NEUROLOGICAL Speech is clear and appropriate. Normal level of consciousness. Gait and coordination are normal. 5/5 strength in all extremities. Normal neuro exam with mild numbness on the V3 area of the trigeminal nerve on the left side. PSYCH Normal mood and affect. Judgement/competence is appropriate Coding Level of Care Code Tele Est Pt Level 4 (72281) Diagnoses Numbness of face R20.0 Time Spent (min) 30 Assessment & Plan Assessment & Plan (1) Numbness of face: Code(s): R20.0 - Anesthesia of skin Category: Medical Plan: BAsed on the current neurological exam, there is low suspicion of stroke or vascular dissection. Vitals stable. Neuro exam is normal. Symptoms most likely 2/2 Trigeminal Neuralgia. - Monitor symptoms and avoid lifting heavy objects to prevent exacerbation. - Continue with massage therapy and consider follow-up in one week to reassess symptoms. - Consider imaging if symptoms worsen or do not improve. Plan During the visit, we discussed the likely diagnosis of trigeminal neuralgia, which is characterized by numbness and pain in the facial area. I explained that the symptoms might be due to a mechanical issue, possibly a small nerve injury, and that they should improve over time with conservative management. We considered the need for imaging but decided to monitor the symptoms first, given the improvement after massage therapy. I advised the patient to avoid heavy lifting and to continue with massage therapy, scheduling a follow-up in one week to reassess the condition. Time spent 30 min: This includes time spent before the visit reviewing the chart, time spent during the visit, and time spent after the visit and documentation.
[2025-02-06 08:28] VITALS: BP 130/80; PULSE 95; TEMP 36.2; O2SAT 98; BMI 33.2
--- OUTSIDE RECORDS SUMMARY | 2025-02-06 08:56 | XMS_ITS | Clinical Summary ---
Author Organization [address] [facility] Address [address] [place] [address] Phone Care Team Providers Care Desktop Publishing Specialist Name Role Phone Lora Porter NP Primary Care Provider [phone] Social History Tobacco Use Types Packs/Day Years Used Date Smoking Tobacco: Never Assessed Sex and Gender Information Value Date Recorded Sex Assigned at Not on file Legal Sex Male 3:19 PM EST Gender Identity Not on file Sexual Orientation Not on file Plan of Treatment Health Maintenance Due Date Last Done Comments Colorectal Cancer Screening: Colonoscopy 1971 Hepatitis B Vaccines (1 of 3 - 19+ 3-dose series) 11/21/1990 Pneumococcal Vaccine: 50+ Years (1 of 1 - PCV) 11/21/2021 Zoster Vaccines (1 of 2) 11/21/2021 HIV Screening 04/07/2022 Hepatitis C Screening 04/07/2022 Medicare Annual Wellness Visit 04/07/2022 Social Influencers of Health Screening 04/07/2022 Depression Screening 05/09/2024 COVID-19 Vaccine (4 - 2024-2 6 season) 2025 04/18/2021, 07/30/2020, 07/02/2020 Influenza Vaccine (#1) 2025 Cholesterol Screening (Lipid Panel) 04/09/2029 04/09/2024 DTaP,Tdap,and Td Vaccines (2 - Td or Tdap) 11/14/2031 11/13/2021 RSV Immunization Adult Patients (1 - 1-dose 75+ series) 11/21/2046 HIB Vaccines Aged Out No longer eligi [...] Diagnosis Comments CBC WITH AUTO DIFFERENTIAL Routine 01/31/2025 9:14 AM EDT Drug therapy CBC AND DIFFERENTIAL Routine 01/31/2025 9:14 AM EDT Drug therapy CBC WITH AUTO DIFFERENTIAL Routine 01/01/2025 10:28 AM EDT Drug therapy CBC AND DIFFERENTIAL Routine 01/01/2025 10:28 AM EDT Drug therapy CBC WITH AUTO DIFFERENTIAL Routine 11/29/2024 10:15 AM EDT Drug therapy CBC AND DIFFERENTIAL Routine 11/29/2024 10:15 AM EDT Drug therapy LIPID PANEL WITH REFLEX TO DIRECT LDL Routine 04/09/2024 11:27 AM EST Mixed hyperlipidemia from Last 3 Months or Most Recently Relevant to Health Maintenance Results * (ABNORMAL) CBC auto differential (01/31/2025 9:14 AM EDT) Only the most recent of3 resultswithin the time period is included. WBC 4.6(L) 4.8 - 10.8 K/mcL LAB HEMETOLOGY METHOD 01/31/2025 10:38 AM EDT [facility] RBC 4.70 4.50 - 5.50 M/mcL LAB HEMETOLOGY METHOD 01/31/2025 10:38 AM EDT [facility] Hemoglobin 13.4(L) 13.5 - 17.5 g/dL LAB HEMETOLOGY METHOD 01/31/2025 10:38 AM [facility] Hematocrit 38.7(L) 42.0 - 54.0 % LAB HEMETOLOGY METHOD 01/31/2025 10:38 AM [facility] MCV 83.0 79.0 - 98.0 FL LAB HEMETOLOGY METHOD 01/31/2025 10:38 AM [facility] MCH 28.8 27.0 - 32.0 pcg LAB HEMETOLOGY METHOD 01/31/2025 10:38 AM [facility] MCHC 34.6 32.0 - 37.0 g/dL LAB HEMETOLOGY METHOD 01/31/2025 10:38 AM [facility] RDW 12.0 11.0 - 15.0 % LAB HEMETOLOGY METHOD 01/31/2025 10:38 AM [facility] Platelets 152 130 - 400 K/mcL LAB HEMETOLOGY METHOD 01/31/2025 10:38 AM [facility] MPV 9.3 7.0 - 11.0 FL LAB HEMETOLOGY METHOD 01/31/2025 10:38 AM [facility] NRBC 0.0 <1.0 % LAB HEMETOLOGY METHOD 01/31/2025 10:38 AM [facility] NRBC Absolute 0.00 <0.10 K/mcL LAB HEMETOLOGY METHOD 01/31/2025 10:38 AM [facility] Neutrophils Relative 52.4 % LAB HEMETOLOGY METHOD 01/31/2025 10:38 AM [facility] Lymphocytes Relative 38.0 % LAB HEMETOLOGY METHOD 01/31/2025 10:38 AM [facility] Monocytes Relative 8.9 % LAB HEMETOLOGY METHOD 01/31/2025 10:38 AM EDT [facility] Eosinophils Relative 0.0 % LAB HEMETOLOGY METHOD 01/31/2025 10:38 AM EDT [facility] Basophils Relative 0.0 % LAB HEMETOLOGY METHOD 01/31/2025 10:38 AM [facility] Immature Granulocytes Relative 0.7 % LAB HEMETOLOGY METHOD 01/31/2025 10:38 AM EDT [facility] Neutrophils Absolute 2.42 1.50 - 7.00 K/mcL LAB HEMETOLOGY METHOD 01/31/2025 10:38 AM EDT [facility] Lymphocytes Absolute 1.75 1.00 - 5.00 K/mcL LAB HEMETOLOGY METHOD 01/31/2025 10:38 AM [facility] Monocytes Absolute 0.41 0.20 - 1.00 K/mcL LAB HEMETOLOGY METHOD 01/31/2025 10:38 AM EDT [facility] Eosinophils Absolute 0.00 0.00 - 0.50 K/mcL LAB HEMETOLOGY METHOD 01/31/2025 10:38 AM [facility] Basophils Absolute 0.00 0.00 - 0.20 K/mcL LAB HEMETOLOGY METHOD 01/31/2025 10:38 AM [facility] Immature Granulocytes Absolute 0.03 0.00 - 0.03 K/mcL LAB HEMETOLOGY METHOD 01/31/2025 10:38 AM T [facility] Blood Venous blood specimen / Unknown Venipuncture / Unknown 01/31/2025 9:14 AM EDT 01/31/2025 10:31 AM EDT Lora Porter NP LAB BLOOD ORDERABLES Final Result [facility] [address] [place] [address], * (ABNORMAL) Lipid panel with reflex to direct LDL (04/09/2024 11:27 AM EST) Cholesterol 257(H) 0 - 200 mg/dL LAB CHEMISTRY METHOD 04/09/2024 2:59 PM EST [facility] Triglycerides 102 0 - 150 mg/dL LAB CHEMISTRY METHOD 04/09/2024 2:59 PM EST [facility] HDL 46 >=40 mg/dL LAB CHEMISTRY METHOD 04/09/2024 2:59 PM EST [facility] LDL Calculated 191(H) 0 - 100 mg/dL LAB CHEMISTRY METHOD 04/09/2024 2:59 PM [facility] VLDL Cholesterol Randy 20.4 mg/dL LAB CHEMISTRY METHOD 04/09/2024 2:59 PM [facility] Non HDL Chol. (LDL+VLDL) 211(H) <145 mg/dL LAB CHEMISTRY METHOD 04/09/2024 2:59 PM [facility] Chol/HDL Ratio 5.6(H) 0.0 - 4.4 LAB CHEMISTRY METHOD 04/09/2024 2:59 PM [facility] Blood Venous blood specimen / Unknown Venipuncture / Unknown 04/09/2024 11:27 AM EST 04/09/2024 12:14 PM EST Sy Swanson MD LAB BLOOD ORDERABLES Final Resu lt [facility] [address] [place] [address], from Last 3 Months or Most Recently Relevant to Health Maintenance Insurance [facility] MEDICARE Member Subscriber Plan / Payer (Ef fective 2023-Present) Name:GISSELLE HSU Relation to Subscriber:Self Name:Gisselle Hsu Payer ID:[id number] Group ID:[id number] Type:Not on file Address: [address] [id number] Care Teams Desktop Publishing Specialist Relationship Specialty Start Date End Date Lora Porter NP [place], [place] PCP - General 06/20/24
== END 2025-02-06 09:00 | disposition home or self-care (01) ==
LOC: HO.HMCH 08:24
PROVIDERS: PCP Internal Medicine; Visit Provider Internal Medicine
DX: R20.0 Anesthesia of skin (principal)

== ENCOUNTER → 2025-02-06 08:24 | Outpatient (BNVA) | payer OTHER, SELFPAY | PROVIDERS: PCP Internal Medicine; Visit Provider Internal Medicine | DX: R20.0 Anesthesia of skin (principal) | CPT/HCPCS: 99212 ==

== ENCOUNTER 2025-02-13 09:46 | Outpatient (AMB) | payer OTHER, SELFPAY ==
--- NOTE | 2025-02-13 09:47 | A.OFFPC_ITS ---
Vital Signs 02/13/25 09:48 Height 5 ft 10 in Weight 236 lb 8 oz BMI 33.9 BP 142/88 H Blood Pressure Location Lt brachial Position Sitting Pulse 100 Pulse Source Pulse Oximeter Temp 97.5 F Temp Source Temporal Artery Scan Pulse Oximetry (%) 96 Oxygen Delivery Method Room Air Intake Visit Reasons: 1 week f/u Allergies sulfamethoxazole (From Sulfamethoxazole-Trimethoprim) Allergy (Intermediate, Verified 02/13/25 09:50) Swelling trimethoprim (From Sulfamethoxazole-Trimethoprim) Allergy (Intermediate, Verified 02/13/25 09:50) Swelling bees Allergy (Intermediate, Uncoded 02/13/25 09:50) Hives Tobacco use date assessed: 02/13/25 Dental Screening Dental Screen Date: 02/13/25 Did you have a dental visit in the last 12 months?: No Did you have a dental problem in the last 6 months where you did not have access to dental care?: No Was dental information given to patient?: No HPI HPI Comments History of Present Illness Details The patient is a 54-year-old male presenting for 7 days F-U for facial numbness. The numbness is localized around the ear and has been managed with massage therapy at a wellness center. The patient reports improvement following these treatments, which include mouth exercises and massages. Additionally, the patient has experienced shoulder pain, which was treated with cupping therapy and heat application at the same wellness center. [facility] Medical History Obesity (BMI 30-39.9) Pure hypercholesterolemia Hyperlipidemia Abscess of forehead Bee sting allergy Bipolar disorder Surgical History History of surgery of head History of appendectomy Family History Mother Stroke Father No problems noted. Social History Housing: House Alcohol intake: never Patient Tobacco Use Status: Former Tobacco user Tobacco use type: Cigar e-Cigarette/Vaping Use: Never Used Second Hand Smoke Exposure: Yes service: No Current occupational status: unemployed Cognitive needs: No Hearing needs: No Vision needs: No Questionnaire PHQ-9 Over the last 2 weeks, how often have you been bothered by any of the following problems? 1. Little interest or pleasure in doing things: not at all 2. Feeling down, depressed, or hopeless: not at all 3. Trouble falling or staying asleep, or sleeping too much: not at all 4. Feeling tired or having little energy: not at all 5. Poor appetite or overeating: not at all 6. Feeling bad about yourself - or that you are a failure or have let yourself or your family down: not at all 7. Trouble concentrating on things, such as reading the newspaper or watching television: not at all 8. Moving or speaking so slowly that other people could have noticed. Or the opposite - being so fidgety or restless that you have been moving around a lot more than usual: not at all 9. Thoughts that you would be better off or of hurting yourself in some way: not at all Total score: 0 Depression Screening Interpretation: Negative Depression Screening Done: Yes Source: Developed by Drs. Tyler Matos, Hanny Hampton, Alfredo Crawford and colleagues, with an educational nawaf from [employer]. Thrive Questionnaire Date Thrive assessed: 11/27/24 I am a: Patient What is your living situation today?: I have a steady place to live Within the past 12 months, did the food you bought not last and you didn't have the money to get more?: Never true Within the past 12 months, did you worry whether your food would run out before you got money to buy more?: Never true Do you have trouble paying for medicines?: No Do you have trouble getting transportation to medical appointments?: No Do you have trouble paying your heating and electricity bill?: No Do you have trouble taking care of your child, family member or friend?: No Do you have trouble with day-to-day activities such as bathing, preparing meals, shopping, managing finances, etc.?: No Are you currently unemployed and looking for a job?: No Are you interested in more education?: No Please select the resources that you would like help with: None Currently or been in a relationship where the following occur: No concerns reported THRIVE Score: 0 AUDIT C Alcohol Use Questionnaire (AUDIT-C) 1. How often do you have a drink containing alcohol?: Never 3. How often do you have six or more drinks on one occasion?: Never Total Score: 0 HERNÁN-7 AMB Questionnaire HERNÁN-7 Date HERNÁN - 7 assessed: 11/27/24 Feeling nervous, anxious, or on edge: 0 = Not at all Not being able to stop or control worryin = Not at all Worrying too much about different things: 0 = Not at all Trouble relaxin = Not at all Being so restless that it is hard to sit still: 0 = Not at all Becoming easily annoyed or irritable: 0 = Not at all Feeling afraid as if something awful might happen: 0 = Not at all Total HERNÁN-7 score (0-4 normal; 5-9 mild; 10-14 moderate; 15-21 severe): 0 Source: Developed by Drs. Tyler Matos, Hanny Hampton, Alfredo Crawford and colleagues, with an educational nawaf from [employer]. Review of Systems Const Details: Positives besides what was mentioned in HPI are in BOLD Constitutional: No Weight Change, No Fever, No Chills, No Night Sweats, No Fatigue, No Malaise ENT/Mouth: No Hearing Changes, No Ear Pain, No Nasal Congestion, No Sinus Pain, No Hoarseness, No sore throat, No Rhinorrhea, No Swallowing Difficulty Eyes: No Eye Pain, No Swelling, No Redness, No Foreign Body, No Discharge, No Vision Changes Cardiovascular: No Chest Pain, No SOB, No PND, No Dyspnea on Exertion, No Orthopnea, No Claudication, No Edema, No Palpitations Respiratory: No Cough, No Sputum, No Wheezing, No Smoke Exposure, No Dyspnea Gastrointestinal: No Nausea, No Vomiting, No Diarrhea, No Constipation, No Pain, No Heartburn, No Anorexia, No Dysphagia, No Hematochezia, No Melena, No Flatulence, No Jaundice Genitourinary: No Dysmenorrhea, No DUB, No Dyspareunia, No Dysuria, No Urinary Frequency, No Hematuria, No Urinary Incontinence, No Urgency, No Flank Pain, No Urinary Flow Changes, No Hesitancy Musculoskeletal: No Arthralgias, No Myalgias, No Joint Swelling, No Joint Stiffness, No Back Pain, No Neck Pain, No Injury History Skin: No Skin Lesions, No Pruritis, No Hair Changes, No Breast/Skin Changes, No Nipple Discharge Neuro: No Weakness, No Numbness, No Paresthesias, No Loss of Consciousness, No Syncope, No Dizziness, No Headache, No Coordination Changes, No Recent Falls Psych: No Anxiety/Panic, No Depression, No Insomnia, No Personality Changes, No Delusions, No Rumination, No SI/HI/AH/VH, No Social Issues, No Memory Changes, No Violence/Abuse Hx., No Eating Concerns Heme/Lymph: No Bruising, No Bleeding, No Transfusions History, No Lymphadenopathy Endocrine: No Polyuria, No Polydipsia, No Temperature Intolerance Physical exam (Primary Care) Vital Signs: Last Vital Signs Temp 97.5 F 02/13/25 09:48 Pulse 100 02/13/25 09:48 BP 142/88 H 02/13/25 09:48 Pulse Ox 96 02/13/25 09:48 Oxygen Delivery Method Room Air 02/13/25 09:48 BMI result Body Mass Index 33.9 Tobacco/Smoking Status: Tobacco use Status Tobacco use date assessed 02/13/25 02/13/25 09:51 Patient Tobacco Use Status Former Tobacco user 02/13/25 09:51 Tobacco use type Cigar 02/13/25 09:51 e-Cigarette/Vaping Use Never Used 02/13/25 09:51 PHQ-9: PHQ-9 Score PHQ-9: Total score 0 02/13/25 09:51 Depression Screening Interpretation: Negative Thrive Assessment: Date of Thrive Assessment Date Thrive assessed 11/27/24 02/13/25 09:51 Currently or been in a relationship where the following occur: No concerns reported Const Other: Pertinent findings are in BOLD GENERAL APPEARANCE NAD, activity normal for age, well developed/ well nourished, no cyanosis, pallor, or diaphoresis. EYES lids/conjunctiva normal. EARS/NOSE/THROAT Mucous membranes moist, nares normal, lips/teeth normal uvula midline without oral pharyngeal erythema, exudate or swelling TMs normal bilaterally. No lymphangitis/lymphedema. HEAD/NECK normocephalic atraumatic, no facial trauma, neck is supple. RESPIRATORY respiratory effort normal, speaks in full sentences, no tripod position, no accessory muscle use. Lungs clear to auscultation without rhonchi, wheezes, rales CARDIAC Regular rate and rhythm, no edema. ABDOMINAL Soft, ND/NT. No evidence of fluid wave. No pulsatile masses on exam, rebound tenderness, Aguilera sign or pain over Mcburney's point. MUSCLES/EXTREMITIES No abnormal range of motion, no swelling. SKIN Warm, pink and dry. No rashes, dermatoses, petechiae or lesions. NEUROLOGICAL Speech is clear and appropriate. Normal level of consciousness. Gait and coordination are normal. 5/5 strength in all extremities. PSYCH Normal mood and affect. Judgement/competence is appropriate Coding Level of Care Code Tele Est Pt Level 3 (83167) Diagnoses Numbness of face R20.0 Time Spent (min) 20 Assessment & Plan Assessment & Plan (1) Numbness of face: Code(s): R20.0 - Anesthesia of skin Category: Medical Plan: - Continue with massage therapy and exercises as they have shown improvement. - F-U with Dr. Lyman. Plan During the visit, we discussed the patient's ongoing management of facial numbness and shoulder pain. I advised the patient to continue with the current therapies, as they have been effective in alleviating symptoms.
[2025-02-13 09:48] VITALS: BP 142/88; PULSE 100; TEMP 36.4; O2SAT 96; BMI 33.9
== END 2025-02-13 11:35 | disposition home or self-care (01) ==
LOC: HO.HMCH 09:47
PROVIDERS: PCP Internal Medicine; Visit Provider Internal Medicine
DX: R20.0 Anesthesia of skin (principal)

== ENCOUNTER → 2025-02-13 09:46 | Outpatient (BNVA) | payer OTHER, SELFPAY | PROVIDERS: PCP Internal Medicine; Visit Provider Internal Medicine | DX: R20.0 Anesthesia of skin (principal) | CPT/HCPCS: 96127; 99212 ==

== ENCOUNTER 2025-04-03 12:31 | Outpatient (AMB) | payer OTHER, SELFPAY ==
--- OUTSIDE RECORDS SUMMARY | 2025-04-01 09:50 | XMS_ITS | Encounter Summary ---
Author Organization [employer] [facility] Address [address] [place] [address] Care Team Providers Care Garbage Collector Name Role Phone Lora Porter NP Primary Care Provider [phone] Encounter Details Date Type Department Care Team (Late st Contact Info) Description 04/01/2025 9:50 AM EST Lab Draw Station - [address] [place] [id number] Drug therapy; Special screening for malignant neoplasms, colon Social History Tobacco Use Types Packs/Day Years Used Date Smoking Tobacco: Never Assessed Sex and Gender Information Value Date Recorded Sex Assigned at Not on file Legal Sex Male 3:19 PM EST Gender Identity Not on file Sexual Orientation Not on file documented as of this encounter Plan of Treatment Not on file documented as of this encounter Procedures Procedure Name Priority Date/Time Associated Diagnosis Comments URINALYSIS WITH REFLEX MICROSCOPIC AND CULTURE Routine 04/01/2025 9:58 AM EST Special screening for malignant neoplasms, colon CERON URINE CULTURE TUBE Routine 04/01/2025 9:58 AM EST Special screening for malignant neoplasms, colon URINALYSIS WITH REFLEX MICROSCOPIC AND CULTURE Routine 04/01/2025 9:58 AM EST Special screening for malignant neoplasms, colon THYROID STIMULATING HORMONE WITH REFLEX TO FREE T4 AND FREE T3 Routine 04/01/2025 9:55 AM EST Special screening for malignant neoplasms, colon LIPID PANEL WITH REFLEX TO DIRECT LDL Routine 04/01/2025 9:55 AM EST Special screening for malignant neoplasms, colon CBC WITH AUTO DIFFERENTIAL Routine 04/01/2025 9:55 AM EST Drug therapy VITAMIN D 25 HYDROXY Routine 04/01/2025 9:55 AM EST Special screening for malignant neoplasms, colon CBC AND DIFFERENTIAL Routine 04/01/2025 9:55 AM EST Drug therapy COMPREHENSIVE METABOLIC PANEL Routine 04/01/2025 9:55 AM EST Special screening for malignant neoplasms, colon documented in this encounter Results * Ceron urine culture tube (04/01/2025 9:58 AM EST) Pathologist [facility] Extra Tube Hold for add-ons. 04/01/2025 12:02 PM EST [facility] Comment:Auto resulted. Urine Urine specimen obtained by clean catch procedure / Unknown Non-blood Collection / Unknown 04/01/2025 9:58 AM EST 04/01/2025 10:07 AM EST us Anthony Ford MD LAB URINE ORDERABLES Final R esult [facility] [address] [place] [address], [place] [phone] * Urinalysis with reflex microscopic and culture (04/01/2025 9:58 AM EST) Pathologist [facility] Specific [place] Urine 1.023 1.003 - 1.030 LAB URINALYSIS - AUTOMATED METHOD 04/01/2025 10:16 AM [facility] pH, Urine 5.5 5.0 - 8.0 pH LAB URINALYSIS - AUTOMATED METHOD 04/01/2025 10:16 AM [facility] Leukocytes, Urine Negative Negative LAB URINALYSIS - AUTOMATED METHOD 04/01/2025 10:16 AM [facility] Nitrite, Urine Negative Negative LAB URINALYSIS - AUTOMATED METHOD 04/01/2025 10:16 AM [facility] Protein, Urine Negative <=Trace mg/dL LAB URINALYSIS - AUTOMATED METHOD 04/01/2025 10:16 AM [facility] Glucose, Urine Negative Negative mg/dL LAB URINALYSIS - AUTOMATED METHOD 04/01/2025 10:16 AM [facility] Ketones, Urine Negative Negative mg/dL LAB URINALYSIS - AUTOMATED METHOD 04/01/2025 10:16 AM [facility] Urobilinogen, Urine 0.2 0.2 - 1.0 mg/dL LAB URINALYSIS - AUTOMATED METHOD 04/01/2025 10:16 AM [facility] Bilirubin, Urine Negative Negative LAB URINALYSIS - AUTOMATED METHOD 04/01/2025 10:16 AM [facility] Blood, Urine Negative Negative LAB URINALYSIS - AUTOMATED METHOD 04/01/2025 10:16 AM [facility] Urine Urine specimen obtained by clean catch procedure / Unknown Non-blood Collection / Unknown 04/01/2025 9:58 AM EST 04/01/2025 10:06 AM EST us Anthony Ford MD LAB URINE ORDERABLES Final R esult [facility] [address] [place] [address], [place] [phone] * (ABNORMAL) CBC auto differential (04/01/2025 9:55 AM EST) WBC 4.8 4.8 - 10.8 K/mcL LAB HEMETOLOGY METHOD 04/01/2025 10:17 AM [facility] RBC 4.70 4.50 - 5.50 M/mcL LAB HEMETOLOGY METHOD 04/01/2025 10:17 AM [facility] Hemoglobin 14.0 13.5 - 17.5 g/dL LAB HEMETOLOGY METHOD 04/01/2025 10:17 AM [facility] Hematocrit 39.7(L) 42.0 - 54.0 % LAB HEMETOLOGY METHOD 04/01/2025 10:17 AM [facility] MCV 83.9 79.0 - 98.0 FL LAB HEMETOLOGY METHOD 04/01/2025 10:17 AM [facility] MCH 29.6 27.0 - 32.0 pcg LAB HEMETOLOGY METHOD 04/01/2025 10:17 AM [facility] MCHC 35.3 32.0 - 37.0 g/dL LAB HEMETOLOGY METHOD 04/01/2025 10:17 AM [facility] RDW 12.0 11.0 - 15.0 % LAB HEMETOLOGY METHOD 04/01/2025 10:17 AM [facility] Platelets 145 130 - 400 K/mcL LAB HEMETOLOGY METHOD 04/01/2025 10:17 AM [facility] MPV 8.9 7.0 - 11.0 FL LAB HEMETOLOGY METHOD 04/01/2025 10:17 AM [facility] NRBC 0.0 <1.0 % LAB HEMETOLOGY METHOD 04/01/2025 10:17 AM [facility] NRBC Absolute 0.00 <0.10 K/mcL LAB HEMETOLOGY METHOD 04/01/2025 10:17 AM [facility] Neutrophils Relative 54.6 % LAB HEMETOLOGY METHOD 04/01/2025 10:17 AM [facility] Lymphocytes Relative 36.5 % LAB HEMETOLOGY METHOD 04/01/2025 10:17 AM [facility] Monocytes Relative 8.5 % LAB HEMETOLOGY METHOD 04/01/2025 10:17 AM [facility] Eosinophils Relative 0.0 % LAB HEMETOLOGY METHOD 04/01/2025 10:17 AM [facility] Basophils Relative 0.0 % LAB HEMETOLOGY METHOD 04/01/2025 10:17 AM EST [facility] Immature Granulocytes Relative 0.4 % LAB HEMETOLOGY METHOD 04/01/2025 10:17 AM EST [facility] Neutrophils Absolute 2.63 1.50 - 7.00 K/mcL LAB HEMETOLOGY METHOD 04/01/2025 10:17 AM EST [facility] Lymphocytes Absolute 1.76 1.00 - 5.00 K/mcL LAB HEMETOLOGY METHOD 04/01/2025 10:17 AM EST [facility] Monocytes Absolute 0.41 0.20 - 1.00 K/mcL LAB HEMETOLOGY METHOD 04/01/2025 10:17 AM EST [facility] Eosinophils Absolute 0.00 0.00 - 0.50 K/mcL LAB HEMETOLOGY METHOD 04/01/2025 10:17 AM EST [facility] Basophils Absolute 0.00 0.00 - 0.20 K/mcL LAB HEMETOLOGY METHOD 04/01/2025 10:17 AM EST [facility] Immature Granulocytes Absolute 0.02 0.00 - 0.03 K/mcL LAB HEMETOLOGY METHOD 04/01/2025 10:17 AM [facility] Blood Venous blood specimen / Unknown Venipuncture / Unknown 04/01/2025 9:55 AM EST 04/01/2025 10:05 AM EST us Lora Porter SIEVE GRADER TENDER LAB BLOOD ORDERABLES Final Result [facility] [address] [place] [address], * (ABNORMAL) Vitamin D 25 hydroxy (04/01/2025 9:55 AM EST) Vit D, 25-Hydroxy 22.9(L) 30.0 - 80.0 ng/mL 04/01/2025 10:55 AM EST [facility] Blood Venous blood specimen / Unknown Venipuncture / Unknown 04/01/2025 9:55 AM EST 04/01/2025 10:02 AM EST Anthony Ford MD LAB BLOOD ORDERABLES Final R esult Performing Organization Address City/[facility]/ZIP Co de Phone Number [facility] [address] [place] [address], [place] [phone] * Thyroid stimulating hormone with reflex to free t4 and free t3 (04/01/2025 9:55 AM EST) TSH 1.54 0.40 - 4.00 mcIU/mL 04/01/2025 10:55 AM EST [facility] Blood Venous blood specimen / Unknown Venipuncture / Unknown 04/01/2025 9:55 AM EST 04/01/2025 10:02 AM EST Anthony Ford MD LAB BLOOD ORDERABLES Final R esult Performing Organization Address City/[facility]/ZIP Co de Phone Number [facility] [address] [place] [address], [place] [phone] * (ABNORMAL) Lipid panel with reflex to direct LDL (04/01/2025 9:55 AM EST) Cholesterol 212(H) 0 - 200 mg/dL 04/01/2025 10:55 AM EST [facility] Triglycerides 96 0 - 150 mg/dL 04/01/2025 10:55 AM EST [facility] HDL 46 >=40 mg/dL 04/01/2025 10:55 AM EST [facility] LDL Calculated 147(H) 0 - 100 mg/dL 04/01/2025 10:55 AM EST [facility] Comment:Estimated LDL Calcul ated using equation: Total cholesterol - HDL cholesterol - (Triglycerides/5) VLDL Cholesterol Randy 19.2 mg/dL 04/01/2025 10:55 AM [facility] Non HDL Chol. (LDL+VLDL) 166(H) <145 mg/dL 04/01/2025 10:55 AM [facility] Chol/HDL Ratio 4.6(H) 0.0 - 4.4 04/01/2025 10:55 AM [facility] Blood Venous blood specimen / Unknown Venipuncture / Unknown 04/01/2025 9:55 AM EST 04/01/2025 10:02 AM EST us Anthony Ford MD LAB BLOOD ORDERABLES Final R esult [facility] [address] [place] [address], * (ABNORMAL) Comprehensive metabolic panel (04/01/2025 9:55 AM EST) Sodium 141 133 - 145 mmol/L 04/01/2025 10:54 AM [facility] Potassium 4.0 3.5 - 5.5 mmol/L 04/01/2025 10:54 AM [facility] Chloride 104 96 - 110 mmol/L 04/01/2025 10:54 AM [facility] CO2 27 21 - 32 mmol/L 04/01/2025 10:54 AM [facility] Anion Gap 10 3 - 11 04/01/2025 10:54 AM [facility] Glucose 136(H) 70 - 100 mg/dL 04/01/2025 10:54 AM [facility] BUN 16 5 - 25 mg/dL 04/01/2025 10:54 AM [facility] Creatinine 0.91 0.70 - 1.30 mg/dL 04/01/2025 10:54 AM [facility] eGFR 101 >=60 mL/min/1. 73m2 04/01/2025 10:54 AM [facility] Comment:Calculation based on the Chronic Kidney Disease Epidemiology Collaboration (CKD-EPI) equation refit without adjustment for race. BUN/Creatinine Ratio 17.6 04/01/2025 10:54 AM [facility] Calcium 8.9 8.5 - 10.5 mg/dL 04/01/2025 10:54 AM [facility] AST (SGOT) 23 10 - 42 unit/L 04/01/2025 10:54 AM [facility] ALT (SGPT) 51 10 - 60 unit/L 04/01/2025 10:54 AM [facility] Alkaline Phosphatase 81 42 - 121 unit/L 04/01/2025 10:54 AM [facility] Total Protein 7.1 6.0 - 8.0 g/dL 04/01/2025 10:54 AM [facility] Albumin 4.1 3.2 - 5.0 g/dL 04/01/2025 10:54 AM [facility] Total Bilirubin 0.6 0.0 - 1.4 mg/dL 04/01/2025 10:54 AM [facility] Blood Venous blood specimen / Unknown Venipuncture / Unknown 04/01/2025 9:55 AM EST 04/01/2025 10:02 AM EST us Anthony Ford MD LAB BLOOD ORDERABLES Final R esult [facility] [address] [place] [address], documented in this encounter Visit Diagnoses Diagnosis Drug therapy Encounter for other specified aftercare Special screening for malignant neoplasms, colon documented in this encounter Care Teams Garbage Collector Relationship Specialty Start Date End Date Lora Porter NP [place], [place] PCP - General 06/20/24 documented as of this encounter
[2025-04-03 12:47] VITALS: BP 138/80; PULSE 100; O2SAT 97; BMI 33.4
--- NOTE | 2025-04-03 12:47 | A.OFFPC_ITS ---
Vital Signs 04/03/25 12:47 Height 5 ft 10 in Weight 233 lb BMI 33.4 BP 138/80 Blood Pressure Location Lt brachial Position Sitting Pulse 100 Pulse Source Pulse Oximeter Pulse Oximetry (%) 97 Oxygen Delivery Method Room Air Intake Visit Reasons: hyperlipidemia Buyer Assistant Required: No Accompanied by: Self / Same As Patient Allergies sulfamethoxazole (From Sulfamethoxazole-Trimethoprim) Allergy (Intermediate, Verified 04/03/25 13:25) Swelling trimethoprim (From Sulfamethoxazole-Trimethoprim) Allergy (Intermediate, Verified 04/03/25 13:25) Swelling bees Allergy (Intermediate, Uncoded 04/03/25 13:25) Hives Medication List - Last Reconciled 04/03/25 by Anthony Ford MD clonazepam 0.5 mg PO DAILY PRN clozapine 200 mg PO DAILY epinephrine (EpiPen 2-Pal) 0.3 mg (0.3 mL) IM Q4H PRN selenium sulfide 2.5% 1 appl topical DAILY 7 days sildenafil (Viagra) 50 mg PO DAILY PRN Tobacco use date assessed: 04/03/25 Dental Screening Dental Screen Date: 04/03/25 Did you have a dental visit in the last 12 months?: No Did you have a dental problem in the last 6 months where you did not have access to dental care?: No Was dental information given to patient?: No HPI hyperlipidemia HPI Details Patient comes in today for his follow up visit States that he feels okay He denies any headaches or dizziness Denies any chest pains, no shortness of breath No nausea/vomiting, no abdominal pain No change in bowel habits noted States that he had his follow-up labs done at the lab at [facility] this past 04/01/2025, and would like to know how he did on his recent labs [facility] Medical History (Updated 04/04/25 @ 18:37 by Anthony Ford MD) Elevated LFTs Obesity (BMI 30-39.9) Pure hypercholesterolemia Hyperlipidemia Abscess of forehead Bee sting allergy Bipolar disorder Surgical History History of surgery of head History of appendectomy Family History Mother Stroke Father No problems noted. Social History Housing: House Alcohol intake: never Patient Tobacco Use Status: Former Tobacco user Tobacco use type: Cigar e-Cigarette/Vaping Use: Never Used Second Hand Smoke Exposure: Yes service: No Current occupational status: unemployed Cognitive needs: No Hearing needs: No Vision needs: No Questionnaire PHQ-9 Over the last 2 weeks, how often have you been bothered by any of the following problems? 1. Little interest or pleasure in doing things: not at all 2. Feeling down, depressed, or hopeless: not at all 3. Trouble falling or staying asleep, or sleeping too much: not at all 4. Feeling tired or having little energy: not at all 5. Poor appetite or overeating: not at all 6. Feeling bad about yourself - or that you are a failure or have let yourself or your family down: not at all 7. Trouble concentrating on things, such as reading the newspaper or watching television: not at all 8. Moving or speaking so slowly that other people could have noticed. Or the opposite - being so fidgety or restless that you have been moving around a lot more than usual: not at all 9. Thoughts that you would be better off or of hurting yourself in some way: not at all Total score: 0 Depression Screening Interpretation: Negative Depression Screening Done: Yes 80012 - PHQ-9 Billing: Yes Source: Developed by Drs. Tyler Matos, Hanny Hampton, Alfredo Crawford and colleagues, with an educational nawaf from [employer]. Thrive Questionnaire Date Thrive assessed: 04/03/25 I am a: Patient What is your living situation today?: I have a steady place to live Within the past 12 months, did the food you bought not last and you didn't have the money to get more?: Never true Within the past 12 months, did you worry whether your food would run out before you got money to buy more?: Never true Do you have trouble paying for medicines?: No Do you have trouble getting transportation to medical appointments?: No Do you have trouble paying your heating and electricity bill?: No Do you have trouble taking care of your child, family member or friend?: No Do you have trouble with day-to-day activities such as bathing, preparing meals, shopping, managing finances, etc.?: No Are you currently unemployed and looking for a job?: No Are you interested in more education?: No Please select the resources that you would like help with: None Currently or been in a relationship where the following occur: No concerns reported THRIVE Score: 0 AUDIT C Alcohol Use Questionnaire (AUDIT-C) 1. How often do you have a drink containing alcohol?: Never 3. How often do you have six or more drinks on one occasion?: Never Total Score: 0 Score Reviewed/Action Taken: Yes HERNÁN-7 AMB Questionnaire HERNÁN-7 Date HERNÁN - 7 assessed: 04/03/25 Feeling nervous, anxious, or on edge: 0 = Not at all Not being able to stop or control worryin = Not at all Worrying too much about different things: 0 = Not at all Trouble relaxin = Not at all Being so restless that it is hard to sit still: 0 = Not at all Becoming easily annoyed or irritable: 0 = Not at all Feeling afraid as if something awful might happen: 0 = Not at all Total HERNÁN-7 score (0-4 normal; 5-9 mild; 10-14 moderate; 15-21 severe): 0 Source: Developed by Drs. Tyler Matos, Hanny Hampton, Alfredo Crawford and colleagues, with an educational nawaf from [employer]. Review of Systems Const Denies chills, Denies fatigue, Denies fever(s) and Denies headache(s) ENT Denies dysphagia, Denies dizziness, Denies otalgia, Denies headache(s), Denies neck pain, Denies odynophagia and Denies sore throat Card Denies chest pain, Denies palpitations and Denies dyspnea Resp Denies chest congestion, Denies cough and Denies dyspnea GI Denies abdominal pain, Denies constipation, Denies dysphagia, Denies heartburn, Denies diarrhea, Denies nausea, Denies odynophagia and Denies vomiting Denies difficulty urinating, Denies dysuria, Denies nocturia and Denies urinary frequency Musc Denies back pain and Denies neck pain Neuro Denies dizziness and Denies headache(s) Psych Reports anxiety (controlled) Endo Denies fatigue and Denies palpitations Physical exam (Primary Care) Vital Signs: Last Vital Signs Pulse 100 04/03/25 12:47 BP 138/80 04/03/25 12:47 Pulse Ox 97 04/03/25 12:47 Oxygen Delivery Method Room Air 04/03/25 12:47 BMI result Body Mass Index 33.4 Tobacco/Smoking Status: Tobacco use Status Tobacco use date assessed 04/03/25 04/03/25 12:52 Patient Tobacco Use Status Former Tobacco user 04/03/25 12:52 Tobacco use type Cigar 04/03/25 12:52 e-Cigarette/Vaping Use Never Used 04/03/25 12:52 PHQ-9: PHQ-9 Score PHQ-9: Total score 0 04/03/25 13:29 Depression Screening Interpretation: Negative Thrive Assessment: Date of Thrive Assessment Date Thrive assessed 04/03/25 04/03/25 12:52 Currently or been in a relationship where the following occur: No concerns reported Const General: no acute distress and alert HENMT Throat: Yes posterior oropharynx normal and Yes tonsils normal (no TP congestion) Neck Neck: No supple and No lymphadenopathy Thyroid: Thyroid normal Resp Auscultation: clear to auscultation bilaterally, no rales and no wheezes Cardio Rate: regular rate Rhythm: regular rhythm Heart sounds: no murmurs GI Palpation (GI): Soft to palpation and nontender Auscultation: normal bowel sounds General: Yes no CVA tenderness Back/Spine/Pelvis Back: no CVA tenderness Thoracic/Lumbar Spine: No lumbar spinal tenderness Skin Rashes: no rashes Extrem General: Yes no clubbing, cyanosis or edema Coding Level of Care Code Est Pt Level 4 (10371) Diagnoses Pure hypercholesterolemia E78.00 Impaired fasting glucose R73.01 Elevated LFTs R79.89 Bipolar affective disorder, current episode mixed, current episode severity unspecified F31.60 Active/Remission status: currently active Current bipolar episode type: mixed Current episode severity: unspecified Obesity (BMI 30-39.9) E66.9 Additional Codes PHQ-9 - 78432 - PHQ-9 Billing: Yes ([id number]) Assessment & Plan Assessment & Plan (1) Pure hypercholesterolemia: Code(s): E78.00 - Pure hypercholesterolemia, unspecified Category: Medical Plan: Patient states that he had his follow-up labs done earlier this week at the lab at [facility] - we have not yet received a copy of his results so we are not able to discuss these with him during his visit today Have advised patient that we will try to get a copy of his lab results sent over for review and will reach out to him if there are any unexpected or abdominal results his LDL cholesterol was still very high at 191 mg/dL when last checked back in April 2024 Reinforced low cholesterol diet Will have patient recheck his labs and fasting lipids again in 4 months for follow up (2) Impaired fasting glucose: Code(s): R73.01 - Impaired fasting glucose Category: Medical Plan: His FBS was also elevated at 122 mg/dl when it was last checked in April 2024 Reinforced low calorie/low carb diet Will have patient recheck his FBS and will also check his HgbA1c in a few months for further evaluation (3) Elevated LFTs: Code(s): R79.89 - Other specified abnormal findings of blood chemistry Category: Medical Plan: His serum ALT was slightly elevated on his labs done back in April 2024; AST was normal This is likely due to fatty liver/hepatosteatosis and should improve with weight loss Will continue to monitor his LFTs regularly (4) Bipolar disorder: Code(s): F31.9 - Bipolar disorder, unspecified Category: Medical Qualifiers: Active/Remission status: currently active Current bipolar episode type: mixed Current episode severity: unspecified Qualified Code(s): F31.60 - Bipolar disorder, current episode mixed, unspecified Plan: Continue Clozapine 200 mg QD and Clonazepam 0.5 mg QD PRN Follow up with psychiatry as scheduled (5) Obesity (BMI 30-39.9): Code(s): E66.9 - Obesity, unspecified Category: Medical Plan: Reinforced diet/exercise as tolerated/lose weight Plan Patient has also been advised that his Cologuard testing done a few months ago in December 2024 came out negative Follow up in 4 months Orders: Orders Lipid Panel 4 Months E78.00 - Pure hypercholesterolemia, unspecified Hemoglobin A1c 4 Months R73.01 - Impaired fasting glucose TSH reflex Free T4 4 Months E78.00 - Pure hypercholesterolemia, unspecified Vitamin D 25-OH Total 4 Months E55.9 - Vitamin D deficiency, unspecified Complete Blood Count Auto Diff 4 Months D64.9 - Anemia, unspecified Comprehensive [place]. Panel Fast 4 Months E78.00 - Pure hypercholesterolemia, unspecified UA CC w/rflx Micro + Cult 4 Months R30.0 - Dysuria
--- OUTSIDE RECORDS SUMMARY | 2025-04-03 15:32 | XMS_ITS | Data Portability ---
Author Organization [facility] [employer] [facility], [facility] [place] [facility] Address [address] [place] [address] Care Team Providers Care Lathe Set Up Operator Name Role Phone HIM CCA OTHER TOSHIA [...] emergency medical condition such as meningitis, encephalitis, WARDROBE CONSULTANT, RPA, pneumonia, sepsis. I believe it's reasonable [...] of any new or worsening serious symptoms [id number] Not available 06/12/2024 14:23:11 Plan of Treatment Reminders Order Date Submit Date Provider Last Modified By Organization Details Last Modified Time Details Appointments None recorded. Lab rapid SARS CoV 2 Ag, QL IA, respiratory specimen 2024 025 [address], [phone] 14:18:11 rapid flu (A+B) 2024 025 [address], [phone] 14:18:11 Referral None recorded. Procedures None recorded. [...] Name and Address Organization Details Recorded Time 32114 Bactrim medicatio n Not available Not available Not available 06/12/2024 [id number] RxNorm Not Available [facility] - production [...] Recorded Body weight Body temperature Oxygen saturation Respiratory rate Body height Heart rate Systolic And Diastolic Provider Name and Address Organization Details Last Updated DateTime 061183. 016 g 98 [degF] 94 % 18 /min 180.34 cm 98 /min 134/87 mm[Hg] Not Available [facility] - production 14:14:14 Social History None recorded. Functional Status None recorded. Mental Status None recorded. Family History Nothing Reported. Medical History No medical history recorded. Past Encounters Encounter ID Performer Location Encounter Start Date Encounter Closed Date Diagnosis/Indication Diagnosis SNOMED-CT Code Diagnosis ICD10 Code Diagnosis IMO Codes Diagnosis Note [id number] Tino Aguilar MD Main - [facility] [address] [place] [phone] 06/12/2024 14:14:07 06/12/2024 17:24:02 Upper respiratory infection 96862810 J06.9 Health Concerns Section Related Observation LastModified by Organization Detai ls LastModified Time None Recorded Concern Status LastModified by Organization Details LastModified Time None Recorded Advance Directives Directive None Recorded Payers Insurance Date Sequence Insurance Name Policy Number Policy [place] Covered Member ID [place] Member ID Guarantor Name 06/12/2024 1 [facility] - DOS ON OR AFTER 2022 - DUAL ELIGIBLE - LONG-TERM OPTIONS AND ONE CARE (MEDICARE REPLACEMENT/ADV ANTAGE - HMO) Prashanth Harrington [id number] Prashanth Harrington Notes Date Note Type Note Provider Name and Address Organization Details Recorded Time 06/12/2024 text/html ROS as noted in the HPI CRC Nurse Triage Notes (Susan Chavez - [...] diarrhea. He would like to be evaluated. Director Of Health Education Organization Information for Tommie Bess [email or web address] [employer] Legal Name: [employer]. Address: [address] [place] [address], System Dispatcher: Derek Chow MD CLIA No.: [id number] Director Of Health Education POC Test Results from Tommie Bess - BLS Rapid COVID antigen (13:59:51) COVID: - Rapid influenza antigen (13:59:52) Flu: - Rapid strep test (14:24:46) Strep: - .................. .................. .................. .................. .................. .................. .................. ............... Director Of Health Education Note From Tommie Bess: SC1 dispatched to [...] .................. .................. .................. .................. .................. .................. ............... [facility] [place] Consulted: Tino Aguilar .................. .................. .................. .................. .................. .................. .................. ............... Disposition: Fulfilled Tino Aguilar MD [address] [facility],[address], [place], [address], ANA - RE AYALA 06/12/2024 14:33:11
--- OUTSIDE RECORDS SUMMARY | 2025-04-03 15:32 | XMS_ITS | Clinical Summary ---
Author Organization [address] [facility] Address [address] [place] [address] Phone Care Team Providers Care Operating Table Assembler Name Role Phone Lora Porter NP Primary Care Provider [phone] Encounters Date Type Department Care Team Description 04/01/2025 9:50 AM EST Lab Draw Station - [address] [place] [phone] Drug therapy; Special screening for malignant neoplasms, colon from Last 3 Months Social History Tobacco Use Types Packs/Day Years [...] Vaccine (#1) 2025 Cholesterol Screening (Lipid Panel) 04/01/2030 04/01/2025, 04/09/2024 DTaP,Tdap,and Td Vaccines (2 - Td [...] Procedure Name Priority Date/Time Associated Diagnosis Comments CERON URINE CULTURE TUBE Routine 04/01/2025 9:58 [...] EST Special screening for malignant neoplasms, colon COMPREHENSIVE METABOLIC PANEL Routine 04/01/2025 9:55 AM EST Special screening for malignant neoplasms, colon CBC AND DIFFERENTIAL Routine 04/01/2025 9:55 AM EST Drug therapy CBC WITH AUTO DIFFERENTIAL Routine 03/05/2025 9:30 AM EDT Drug therapy CBC AND DIFFERENTIAL Routine 03/05/2025 9:30 AM EDT Drug therapy CBC WITH AUTO DIFFERENTIAL Routine 01/31/2025 9:14 AM EDT Drug therapy CBC AND DIFFERENTIAL Routine 01/31/2025 9:14 AM EDT Drug therapy CBC WITH AUTO DIFFERENTIAL Routine 01/01/2025 10:28 AM EDT Drug therapy CBC AND DIFFERENTIAL Routine 01/01/2025 10:28 AM EDT Drug therapy from Last 3 Months Results * Urinalysis with reflex microscopic and culture (04/01/2025 9:58 AM EST) Pathologist [facility] Specific [place] Urine 1.023 1.003 - 1.030 LAB URINALYSIS - AUTOMATED METHOD 04/01/2025 10:16 AM [facility] pH, Urine 5.5 5.0 - 8.0 pH LAB URINALYSIS - AUTOMATED METHOD 04/01/2025 10:16 AM [facility] Leukocytes, Urine Negative Negative LAB URINALYSIS - AUTOMATED METHOD 04/01/2025 10:16 AM [facility] Nitrite, Urine Negative Negative LAB URINALYSIS - AUTOMATED METHOD 04/01/2025 10:16 AM [facility] Protein, Urine Negative <=Trace mg/dL LAB URINALYSIS - AUTOMATED METHOD 04/01/2025 10:16 AM [facility] Glucose, Urine Negative Negative mg/dL LAB URINALYSIS - AUTOMATED METHOD 04/01/2025 10:16 AM [facility] Ketones, Urine Negative Negative mg/dL LAB URINALYSIS - AUTOMATED METHOD 04/01/2025 10:16 AM [facility] Urobilinogen, Urine 0.2 0.2 - 1.0 mg/dL LAB URINALYSIS - AUTOMATED METHOD 04/01/2025 10:16 AM [facility] Bilirubin, Urine Negative Negative LAB URINALYSIS - AUTOMATED METHOD 04/01/2025 10:16 AM [facility] Blood, Urine Negative Negative LAB URINALYSIS - AUTOMATED METHOD 04/01/2025 10:16 AM [facility] Urine Urine specimen obtained by clean catch procedure / Unknown Non-blood Collection / Unknown 04/01/2025 9:58 AM EST 04/01/2025 10:06 AM EST us Anthony Ford MD LAB URINE ORDERABLES Final R esult Performing Organization Address City/[facility]/ZIP Co de Phone Number [facility] [address] [place] [address], [place] [phone] * Ceron urine culture tube (04/01/2025 9:58 AM EST) Extra Tube Hold for add-ons. 04/01/2025 12:02 PM [facility] Comment:Auto resulted. Urine Urine specimen obtained by clean catch procedure / Unknown Non-blood Collection / Unknown 04/01/2025 9:58 AM EST 04/01/2025 10:07 AM EST us Anthony Ford MD LAB URINE ORDERABLES Final R esult Performing Organization Address City/[facility]/ZIP Co de Phone Number [facility] [address] [place] [address], [place] [phone] * Thyroid stimulating hormone with reflex to free t4 and free t3 (04/01/2025 9:55 AM EST) TSH 1.54 0.40 - 4.00 mcIU/mL 04/01/2025 10:55 AM [facility] Blood Venous blood specimen / Unknown Venipuncture / Unknown 04/01/2025 9:55 AM EST 04/01/2025 10:02 AM EST Anthony Ford MD LAB BLOOD ORDERABLES Final R esult [facility] [address] [place] [address], * (ABNORMAL) Lipid panel with reflex to direct LDL (04/01/2025 9:55 AM EST) Cholesterol 212(H) 0 - 200 mg/dL 04/01/2025 10:55 AM EST [facility] Triglycerides 96 0 - 150 mg/dL 04/01/2025 10:55 AM EST [facility] HDL 46 >=40 mg/dL 04/01/2025 10:55 AM [facility] LDL Calculated 147(H) 0 - 100 mg/dL 04/01/2025 10:55 AM [facility] Comment:Estimated LDL Calcul ated using equation: Total cholesterol - HDL cholesterol - (Triglycerides/5) VLDL Cholesterol Randy 19.2 mg/dL 04/01/2025 10:55 AM [facility] Non HDL Chol. (LDL+VLDL) 166(H) <145 mg/dL 04/01/2025 10:55 AM [facility] Chol/HDL Ratio 4.6(H) 0.0 - 4.4 04/01/2025 10:55 AM [facility] Blood Venous blood specimen / Unknown Venipuncture / Unknown 04/01/2025 9:55 AM EST 04/01/2025 10:02 AM EST Anthony Ford MD LAB BLOOD ORDERABLES Final R esult [facility] [address] [place] [address], * (ABNORMAL) CBC auto differential (04/01/2025 9:55 AM EST) Only the most recent of4 resultswithin the time period is included. WBC 4.8 4.8 - 10.8 K/mcL LAB HEMETOLOGY METHOD 04/01/2025 10:17 AM [facility] RBC 4.70 4.50 - 5.50 M/mcL LAB HEMETOLOGY METHOD 04/01/2025 10:17 AM [facility] Hemoglobin 14.0 13.5 - 17.5 g/dL LAB HEMETOLOGY METHOD 04/01/2025 10:17 AM [facility] Hematocrit 39.7(L) 42.0 - 54.0 % LAB HEMETOLOGY METHOD 04/01/2025 10:17 AM [facility] MCV 83.9 79.0 - 98.0 FL LAB HEMETOLOGY METHOD 04/01/2025 10:17 AM [facility] MCH 29.6 27.0 - 32.0 pcg LAB HEMETOLOGY METHOD 04/01/2025 10:17 AM [facility] MCHC 35.3 32.0 - 37.0 g/dL LAB HEMETOLOGY METHOD 04/01/2025 10:17 AM [facility] RDW 12.0 11.0 - 15.0 % LAB HEMETOLOGY METHOD 04/01/2025 10:17 AM [facility] Platelets 145 130 - 400 K/mcL LAB HEMETOLOGY METHOD 04/01/2025 10:17 AM [facility] MPV 8.9 7.0 - 11.0 FL LAB HEMETOLOGY METHOD 04/01/2025 10:17 AM [facility] NRBC 0.0 <1.0 % LAB HEMETOLOGY METHOD 04/01/2025 10:17 AM [facility] NRBC Absolute 0.00 <0.10 K/mcL LAB HEMETOLOGY METHOD 04/01/2025 10:17 AM [facility] Neutrophils Relative 54.6 % LAB HEMETOLOGY METHOD 04/01/2025 10:17 AM [facility] Lymphocytes Relative 36.5 % LAB HEMETOLOGY METHOD 04/01/2025 10:17 AM [facility] Monocytes Relative 8.5 % LAB HEMETOLOGY METHOD 04/01/2025 10:17 AM [facility] Eosinophils Relative 0.0 % LAB HEMETOLOGY METHOD 04/01/2025 10:17 AM [facility] Basophils Relative 0.0 % LAB HEMETOLOGY METHOD 04/01/2025 10:17 AM [facility] Immature Granulocytes Relative 0.4 % LAB HEMETOLOGY METHOD 04/01/2025 10:17 AM [facility] Neutrophils Absolute 2.63 1.50 - 7.00 K/mcL LAB HEMETOLOGY METHOD 04/01/2025 10:17 AM [facility] Lymphocytes Absolute 1.76 1.00 - 5.00 K/mcL LAB HEMETOLOGY METHOD 04/01/2025 10:17 AM [facility] Monocytes Absolute 0.41 0.20 - 1.00 K/mcL LAB HEMETOLOGY METHOD 04/01/2025 10:17 AM [facility] Eosinophils Absolute 0.00 0.00 - 0.50 K/mcL LAB HEMETOLOGY METHOD 04/01/2025 10:17 AM [facility] Basophils Absolute 0.00 0.00 - 0.20 K/mcL LAB HEMETOLOGY METHOD 04/01/2025 10:17 AM [facility] Immature Granulocytes Absolute 0.02 0.00 - 0.03 K/mcL LAB HEMETOLOGY METHOD 04/01/2025 10:17 AM EST [facility] Blood Venous blood specimen / Unknown Venipuncture / Unknown 04/01/2025 9:55 AM EST 04/01/2025 10:05 AM EST Lora Porter FISHERIES ENFORCEMENT OFFICER LAB BLOOD ORDERABLES Final Result Performing Organization Address [facility]/ZIP Co de Phone Number [facility] [address] [place] [address], [place] [phone] * (ABNORMAL) Vitamin D 25 hydroxy (04/01/2025 9:55 AM EST) [facility] Vit D, 25-Hydroxy 22.9(L) 30.0 - 80.0 ng/mL 04/01/2025 10:55 AM EST [facility] Blood Venous blood specimen / Unknown Venipuncture / Unknown 04/01/2025 9:55 AM EST 04/01/2025 10:02 AM EST Anthony Ford MD LAB BLOOD ORDERABLES Final R esult Performing Organization Address City/[facility]/ZIP Co de Phone Number [facility] [address] [place] [address], [place] [phone] * (ABNORMAL) Comprehensive metabolic panel (04/01/2025 9:55 AM EST) [facility] Sodium 141 133 - 145 mmol/L 04/01/2025 10:54 AM EST [facility] Potassium 4.0 3.5 - 5.5 mmol/L 04/01/2025 10:54 AM EST [facility] Chloride 104 96 - 110 mmol/L 04/01/2025 10:54 AM EST [facility] CO2 27 21 - 32 mmol/L 04/01/2025 10:54 AM EST [facility] Anion Gap 10 3 - 11 04/01/2025 10:54 AM [facility] Glucose 136(H) 70 - 100 mg/dL 04/01/2025 10:54 AM [facility] BUN 16 5 - 25 mg/dL 04/01/2025 10:54 AM [facility] Creatinine 0.91 0.70 - 1.30 mg/dL 04/01/2025 10:54 AM [facility] eGFR 101 >=60 mL/min/1. 73m2 04/01/2025 10:54 AM [facility] Comment:Calculation based on the Chronic Kidney Disease Epidemiology Collaboration (CKD-EPI) equation refit without adjustment for race. BUN/Creatinine Ratio 17.6 04/01/2025 10:54 AM [facility] Calcium 8.9 8.5 - 10.5 mg/dL 04/01/2025 10:54 AM [facility] AST (SGOT) 23 10 - 42 unit/L 04/01/2025 10:54 AM [facility] ALT (SGPT) 51 10 - 60 unit/L 04/01/2025 10:54 AM [facility] Alkaline Phosphatase 81 42 - 121 unit/L 04/01/2025 10:54 AM [facility] Total Protein 7.1 6.0 - 8.0 g/dL 04/01/2025 10:54 AM [facility] Albumin 4.1 3.2 - 5.0 g/dL 04/01/2025 10:54 AM [facility] Total Bilirubin 0.6 0.0 - 1.4 mg/dL 04/01/2025 10:54 AM [facility] Blood Venous blood specimen / Unknown Venipuncture / Unknown 04/01/2025 9:55 AM EST 04/01/2025 10:02 AM EST us Anthony Ford MD LAB BLOOD ORDERABLES Final R esult [facility] [address] [place] [address], [place] [phone] from Last [address] [facility] MEDICARE Member Subscriber Plan / Payer (Ef fective 2023-Present) Name:[employer] Relation to Subscriber:Self Name:Gisselle Hsu Payer ID:[id number] Group ID:[id number] Type:Not on file Address: [place] [address] [address] [place] [phone] Care Teams Operating Table Assembler Relationship Specialty Start Date End Date Lora Porter NP [address] [place], [place] PCP - General 06/20/24
== END 2025-04-03 13:37 | disposition home or self-care (01) ==
LOC: HO.HMCH 12:31
PROVIDERS: PCP Internal Medicine; Visit Provider Internal Medicine
DX: E78.00 Pure hypercholesterolemia, unspecified (principal); F31.60 Bipolar disorder, current episode mixed, unspecified; E66.9 Obesity, unspecified; Z68.33 Body mass index [BMI] 33.0-33.9, adult; R73.01 Impaired fasting glucose; R79.89 Other specified abnormal findings of blood chemistry

== ENCOUNTER → 2025-04-03 12:31 | Outpatient (BNVA) | payer OTHER, SELFPAY | PROVIDERS: PCP Internal Medicine; Visit Provider Internal Medicine | DX: R73.01 Impaired fasting glucose (principal); F31.60 Bipolar disorder, current episode mixed, unspecified; E78.00 Pure hypercholesterolemia, unspecified; R79.89 Other specified abnormal findings of blood chemistry; E66.9 Obesity, unspecified | CPT/HCPCS: 96127; 99212 ==